=== PATIENT | male | born 1965 | race Caucasian/White ===

== ENCOUNTER → 2020-06-04 08:18 | Outpatient (CLI) | payer OTHER, SELFPAY ==
--- NOTE | ~2020-06-04 | XR_ITS ---
XR foot RT min 3V 06/04/2020 08:39 Indication: Right foot pain Procedure: 4 views right foot Comparison: No prior studies for comparison. Findings: No fracture, subluxation or dislocation. Normal mineralization. Lisfranc joint is intact. N o degenerative calcaneal enthesophyte. No soft tissue abnormality. No foreign bodies. Impression: 1: No acute fracture. Reviewed, dictated and finalized at location A. Impression: 1: No acute fracture.
== END ==
PROVIDERS: PCP Family Medicine; Visit Provider Family Medicine
DX: M79.671 Pain in right foot (principal)
CPT/HCPCS: 73630

== ENCOUNTER → 2020-06-18 09:25 | Outpatient (CLI) | payer OTHER, SELFPAY ==
--- NOTE | ~2020-06-18 | MR_ITS ---
EXAMINATION: MR foot RT wo con DATE: 06/18/2020 10:53 INDICATION: Right foot pain. TECHNIQUE: Magnetic resonance imaging (MRI) of the right foot was performed without intravenous contr ast. Sequences included axial, coronal, and sagittal PD-weighted FSE and PD-weighted FS FSE. COMPARISON: Right foot radiographs 06/04/2020 FINDINGS: There is a skin marker medial to calcaneus. Bone alignment is normal. No fracture. There is mild osteoarthritis of the ankle joint and many of the midfoot joints. There is moderate osteoarthri tis of second tarsometatarsal joint. Lisfranc ligament is normal. There is a 2.4 cm nonaggressive lyt ic lesion in body of calcaneus that contains fat, consistent with an intraosseous lipoma. There is mo derate peroneus brevis tendinopathy. The anterior and medial ankle tendons are normal. There is mild Achilles tendinopathy. There are varices in the talar tunnel. There is mild fatty atrophy of abductor digiti quinti muscle. There is thickening and increased signal involving medial and central bands of plantar fascia, consistent with fasciitis. There is an enthesophyte at the calcaneal attachment. The re is a small talonavicular joint effusion. IMPRESSION: 1. Plantar fasciitis. 2. Polyarticular osteoarthritis. Reviewed, dictated and finalized at location A.
== END ==
PROVIDERS: PCP Family Medicine; Visit Provider Family Medicine
DX: M19.071 Primary osteoarthritis, right ankle and foot (principal); M72.2 Plantar fascial fibromatosis
CPT/HCPCS: 73718

== ENCOUNTER → 2021-01-23 09:46 | Outpatient (CLI) | payer OTHER, SELFPAY ==
--- NOTE | ~2021-01-23 | MR_ITS ---
EXAMINATION: MR brain/brain stem wo/w con EXAM DATE: 01/23/2021 10:47 INDICATION: Other general symptoms and signs, Abnormal weight gain. Low testosterone. TECHNIQUE: Magnetic resonance imaging (MRI) of the brain/brain stem obtained without contrast. Sagit nazario T1, axial diffusion, gradient echo (T2*), T1, T2, FLAIR sequences obtained. Patient was then inj ected with 20 cc intravenous Multihance contrast. Axial and coronal postcontrast T1 weighted sequence s obtained. A pituitary protocol was utilized including dynamic imaging through the pituitary gland d uring intravenous injection of contrast. There are no prior studies for comparison. FINDINGS: The pituitary gland is confined to the sella turcica. Suprasellar region normal in appear ance. The optic chiasm normal. Infundibulum is midline. No definite pituitary microadenoma identif ied. Please note small microadenomas can cause endocrine abnormalities but are not always identified by imaging even using dedicated pituitary protocol. This does exclude macroadenoma or need for surg ical management. There are no areas of restricted diffusion to suggest acute infarction. There is no acute hemorrhage seen on the T2*, a hemosiderin sensitive sequence. No intraparenchymal brain mass. The ventricles a re normal in size. There are no extra-axial collections. Flow voids are seen in the cerebral arteri es on the T2-weighted sequences consistent with their expected patency. The orbits are unremarkable. Soft tissue is unremarkable. IMPRESSION: 1. Unremarkable brain/pituitary exam. Reviewed, dictated and finalized at location B. 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
[2021-01-23 10:13] LABS: Estimated Glomerular Filt Rate > 60
== END ==
PROVIDERS: PCP Family Medicine; Visit Provider Family Medicine
DX: R79.89 Other specified abnormal findings of blood chemistry (principal); R68.89 Other general symptoms and signs; R63.5 Abnormal weight gain
CPT/HCPCS: 70553; A9577

== ENCOUNTER → 2021-11-23 12:51 | Outpatient (CLI) | payer OTHER, SELFPAY ==
--- NOTE | ~2021-11-23 | CT_ITS ---
EXAMINATION: CTA chest PE protocol DATE: 11/23/2021 13:16 INDICATION: Shortness of breath. TECHNIQUE: Computed tomography angiography (CTA) of the chest was performed with 100 mL Omnipaque-350 intravenous contrast timed to evaluate the pulmonary arteries. Coronal maximum intensity projection 3D-reconstructions were created by the technologist. Automated exposure control and iterative reconst ruction technique were employed. The dose-length product was 734.31 mGy-cm. COMPARISON: None. FINDINGS: The lung volumes are small. The lungs demonstrate mild atelectasis. A calcified right lung nodule and calcified right hilar lymph nodes are consistent with old granulomatous disease. No pleura l effusion. The heart size is normal. No pericardial effusion. There is mild bilateral hilar lymphade nopathy. There is a 12 mm mass in left adrenal gland measuring soft tissue attenuation. There is mild thoracic spondylosis. There is mild chronic anterior wedging of T10 and T11 vertebral bodies. IMPRESSION: 1. No pulmonary embolus. 2. Small lung volumes with mild atelectasis bilaterally. 3. Mild bilateral hilar lymphadenopathy, likely reactive. 4. 12 mm left adrenal mass. In the absence of known malignancy, this finding is likely an adenoma. Reviewed, dictated and finalized at location A.
[2021-11-23 13:09] LABS: Estimated Glomerular Filt Rate > 60
== END ==
PROVIDERS: PCP Family Medicine; Visit Provider Family Medicine
DX: R06.02 Shortness of breath (principal); R00.0 Tachycardia, unspecified; R79.89 Other specified abnormal findings of blood chemistry; E27.9 Disorder of adrenal gland, unspecified
CPT/HCPCS: 71275; Q9967

== ENCOUNTER → 2021-12-26 12:05 | Outpatient (CLI) | payer OTHER, SELFPAY ==
--- NOTE | ~2021-12-26 | MR_ITS ---
EXAMINATION: MR abdomen wo/w con, MR pelvis wo/w con DATE: 12/26/2021 14:46 INDICATION: Apical and advancement may have . Abnormality left adrenal gland. TECHNIQUE: 1. Magnetic resonance imaging (MRI) of the abdomen was performed without and with 20 mL Multihance in travenous contrast. Sequences included coronal and axial T2-weighted SS-FSE, axial FS 2D-FIESTA, agustina nal and axial dual-echo T1-weighted FSPGR, axial T1-weighted LAVA, and axial STIR FSE. Postcontrast a xial T1-weighted LAVA images were obtained in a time course. Postcontrast coronal T1-weighted LAVA im ages were obtained. 2. MRI of the pelvis was performed without and with 20 mL MultiHance intravenous contrast utilizing t he same contrast bolus. Sequences included coronal T2-weighted SS-FSE, FS 2D-FIESTA and T1 weighted L SABRA, axial FS 2D-FIESTA, axial dual-echo T1-weighted FSPGR, axial T1-weighted LAVA, and axial STIR FS E. Postcontrast axial and coronal T1-weighted LAVA images were obtained. COMPARISON: CT chest dated 11/23/2021 FINDINGS: Abdomen: Heart size is normal. No pericardial or pleural effusion. Eventration along the right hemidiaphragm. Diffuse hepatic steatosis with signal dropout on opposed phase imaging and focal sparing along the ga llbladder fossa. No intra or extra hepatic biliary ductal dilation. Gallbladder, pancreas, spleen and right kidney are normal. 6 mm T2 hyperintense nonenhancing cyst at the interpolar region of the left kidney. Bilateral adrenal glands are normal with no discrete adrenal nodules. There is a left adrena l vein which runs along the anterior margin of the medial limb of the left adrenal gland which appear s to account for the nodular appearance on the prior CT. The left adrenal vein drains into a normal v ariant retroaortic left renal vein. No pathologically enlarged abdominal lymphadenopathy. Pelvis: Bowels are normal including a normal appendix. Bladder, prostate and bilateral testes are unremarkabl e. Small fat-containing left inguinal hernia. No pathologically enlarged pelvic lymphadenopathy. No a scites. Mild lumbar levocurvature with moderate to severe lower lumbar spondylosis. IMPRESSION: 1. No discrete adrenal nodules. Artifactual appearance of a small left adrenal nodule on the prior CT results from a left adrenal vein abutting the anterior margin of the medial limb of the left adrenal gland which is best distinguished on the postcontrast images. 2. Diffuse hepatic steatosis. Reviewed, dictated and finalized at location A. 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 No discrete adrenal nodules. Artifactual appearance of a small left adrenal nodule on the prior CT results from a left adrenal vein abutting the anterior m argin of the medial limb of the left adrenal gland which is best distinguished on the postcontrast images. 2. Diffuse hepatic steatosis.
== END ==
PROVIDERS: PCP Family Medicine; Visit Provider Family Medicine
DX: E29.1 Testicular hypofunction (principal); D35.02 Benign neoplasm of left adrenal gland; K76.0 Fatty (change of) liver, not elsewhere classified
CPT/HCPCS: 72197; 74183; A9577

== ENCOUNTER → 2023-01-18 10:18 | Outpatient (CLI) | payer OTHER, SELFPAY ==
--- NOTE | ~2023-01-18 | US_ITS ---
US abdomen limited INDICATION: Bloating. Generalized abdominal pain. PROCEDURE: Realtime right upper abdominal ultrasound. COMPARISON: No prior studies for comparison. FINDINGS: The pancreas is normal without focal mass or pancreatic ductal dilation. Echotexture is in creased, consistent with fatty infiltration. There is normal directional flow in the portal vein. The gallbladder is normal without stones, gallbladder wall thickening or pericholecystic fluid. Comm on bile duct measures 5 mm. No sonographic Nuñez's sign. IMPRESSION: 1: Fatty infiltration of the liver. Reviewed, dictated and finalized at location B. 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
== END ==
PROVIDERS: PCP Family Medicine; Visit Provider Family Medicine
DX: R73.9 Hyperglycemia, unspecified (principal); F41.9 Anxiety disorder, unspecified; R19.7 Diarrhea, unspecified; R14.0 Abdominal distension (gaseous); K76.0 Fatty (change of) liver, not elsewhere classified
CPT/HCPCS: 76705

== ENCOUNTER 2023-04-04 07:49 | Outpatient (CLI) | payer OTHER, SELFPAY ==
--- NOTE | 2023-04-04 08:08 | ECG_ITS ---
Measurements Intervals [place] Rate: 83 P: 5 OK: 168 QRS: 5 QRSD: 98 T: 42 QT: 361 QTc: 426 Interpretive Statements SINUS RHYTHM BASELINE ARTIFACT NORMAL ECG NO PREVIOUS ECG AVAILABLE FOR COMPARISON Electronically Signed On 04-04-2023 12:28:27 REDUCER by Kelton Gaspar M.D.
[2023-04-04 09:15] LABS: Anion Gap 11 mmol/L (8-16); Blood Urea Nitrogen 25 mg/dL (9-20); Calcium 9.8 mg/dL (8.4-10.2); Carbon Dioxide 23 mmol/L (22-30); Chloride 105 mmol/L (98-107); Estimated Glomerular Filt Rate > 60; Glucose 123 mg/dL (65-110); Potassium 4.6 mmol/L (3.4-5.0); Sodium 139 mmol/L (137-145)
[2023-04-04 09:16] LABS: Alanine Aminotransferase 36 U/L (6-50); Albumin Level 4.5 g/dL (3.5-5.1); Alkaline Phosphatase 59 U/L (38-126); Amylase 90 U/L (30-110); Aspartate Amino Transferase 34 U/L (17-59); Bilirubin,Total 0.6 mg/dL (0.2-1.3); Lipase 85 U/L (23-300)
== END 2023-04-04 07:50 | disposition home or self-care (01) ==
LOC: ANHSURGERY 07:52
PROVIDERS: Anesthesiology; PCP Family Medicine; Visit Provider Surgery
DX: Z01.818 Encounter for other preprocedural examination (principal); K81.1 Chronic cholecystitis; I10 Essential (primary) hypertension; E11.9 Type 2 diabetes mellitus without complications
CPT/HCPCS: 36415; 80048; 80076; 82150; 83690; 93005

== ENCOUNTER 2023-04-11 00:42 | Day surgery (SDC) | payer OTHER, SELFPAY ==
[2023-04-01 14:00] VITALS: BMI 339.7
--- NOTE | 2023-04-01 14:11 | PC.NURSE ---
Report to the Outpatient Waiting Room, entrance under the green pavilion located off [facility], at time _0600_ on date _[id number]_. Planned Procedure Time: _0730_. Time changes happen often and if your time is changed the preop area will call you the afternoon before. - You and your visitor will be asked to self-screen and do not enter if you have any COVID symptoms. - A mask is optional within the hospital at this time. Patients may have clear liquids (water, carbonated beverages, clear teas, apple juice) until 3 hours prior to surgery with a maximum of 20 ounces. - No food from midnight until time of surgery Take the following medications with a SIP of water the morning of surgery: ___Metoprolol DO NOT STOP ANY OF YOUR OTHER PRESCRIPTION MEDICATIONS PRIOR TO SURGERY ?EXCEPT THE FOLLOWING Medications to discontinue per physician Clopidogrel Date to take last [id number] Says is to take 81mg Aspirin instead until surgery. Please no make-up, nail maldivian, hairspray, perfume, deodorant, or body powder the day of surgery. No jewelry (including any body piercings) or valuables the day of surgery, leave them at home. Please take a shower or bath the night before, or the morning of, surgery with an antibacterial soap. Wear comfortable, loose fitting clothing. - Jewelry must be removed prior to entering the operating room. Rings and piercings that are not removed may be cut off. - The hospital will not accept responsibility for valuables. - Please leave all valuables, including medications, at home the day of surgery. If you are going home after surgery, a licensed special needs bus driver must drive you home. - NO public transportation without another adult if you receive anesthesia. - We recommend that an adult stay with you for 24 hours following discharge. - We also recommend that you do not drive, make important decision, drink alcoholic beverages, or take any drugs that were not prescribed by your health care provider for at least 24 hours after your discharge time. Follow any additional instructions given to you from your surgeon. If you or anyone in your household have experienced Covid symptoms in the past week, please notify your surgeon or the nurse liaison at the phone number below for possible testing. Telephone instructions given to __Gary___and asked if any additional questions and then verbalized understanding. Patient advised to call surgeon office or pre surgery nurse liaison [phone] if any additional questions.
[2023-04-11] VITALS (10 sets, daily range): BP systolic 121–173; BP diastolic 80–105; PULSE 69–93; RESP 12–24; TEMP 36.7–36.9; O2SAT 90–100; BMI 34.7
--- NOTE | 2023-04-11 06:28 | WPDANESEPPF ---
Anes - Initial Pre Proc Eval Procedure: Operation Date: 04/11/23 07:30 Proposed Procedures p Laparoscopic Cholecystectomy - Renetta Granados MD Date/Time: 04/11/23 06:28 Surgeon: Renetta Granados MD Pre Op Diagnosis: chronic cholecystitis Patient Data Age: 57 Gender: M Height: 1.8 m Weight: 114.5 kg Allergies Allergy/AdvReac Type Severity Reaction Status Date / Time metformin AdvReac Mild Other Verified 04/01/23 13:58 statin AdvReac Mild Other Uncoded 04/01/23 13:58 Home Medications Medication Instructions Recorded Confirmed Type clopidogrel 75 mg tablet 75 mg PO DAILY 01/08/23 04/01/23 History ipratropium bromide 42 mcg (0.06 2 spray intranasal TID 01/08/23 04/01/23 History %) nasal spray metoprolol succinate 25 mg 25 mg PO Q12H 01/08/23 04/01/23 History tablet,extended release 24 hr evolocumab 140 mg/mL subcutaneous 140 mg subcut ONCE 03/20/23 04/01/23 History pen injector (Reji Costello) lisinopril 5 mg tablet 5 mg PO DAILY 03/20/23 04/01/23 History Patient hx anesthesia problems: none Family hx anesthesia problems: none Results Review: All pre-operative results and documents have been reviewed as part of the pre-operative evaluation. [facility] Past Medical History Medical History (Updated 04/11/23 @ 06:29 by Dario Beth MD) Fatigue HTN (hypertension) Hyperlipidemia Left adrenal mass Low testosterone Obesity Pre-diabetes Surgical History Surgical History H/O rotator cuff surgery History of cardiac cath x2 History of excision of pilonidal cyst Hx of tonsillectomy Family History Family History Other Diabetes mellitus Family history of heart disease in male family member before age 55 Heart disease Hypertension Social History Social History Smoking packs per day: 1.5 Smoking cigarettes per day: 30.0 Years smoked: 28 Smoking pack-years: 42.00 Smoking status: Former smoker Tobacco type: cigarettes Smokeless tobacco user: chewing tobacco Smoking end date: 04/01/09 Alcohol intake: current Substance use: never Do You Feel Safe in your Home?: Yes Lack of Transportation: No Lack of Food: Never True Current Housing: I Have Housing Concerned About Future Housing: No Difficulty Paying Gas/Electric Bills: No Difficulty Paying for Meds: No Currently Unemployed: No Education: High School Diploma/GED Difficulty w/ Childcare or Family Care: No Living arrangements: with family Occupation/Education: retired Spiritual care concerns: No Anes - Eval Final PreProcedure Day of Procedure 04/11/23 06:28 Patient weight: obese Heart: regular rate and rhythm Lungs: clear to auscultation Airway: Mallampati scale class II Neurological: alert and oriented Last oral intake: >/= 8 hours ASA classification: III Emergent: no Anesthetic plan: proceed Anesthesia type and monitoring: general ETT and standard monitoring Results Review: All pre-operative results and documents have been reviewed as part of the pre-operative evaluation. Informed Consent: The patient's anesthetic plan and its attendant risks and benefits were discussed with the patient/family/POA. Questions were solicited and answers provided to the satisfaction of the patient/family/POA.
[2023-04-11] MEDS: LACTATED RINGERS 1,000 ML 30 ML IV CONT ×2 (06:50→08:24)
[2023-04-11] MEDS: KETOROLAC 15 MG/ML VIAL (*BKC) IV PUSH (06:56)
[2023-04-11] MEDS: ACETAMINOPHEN 500 MG TABLET 1000 MG PO (06:57)
--- NOTE | 2023-04-11 07:19 | WPDHPUPDATE1 ---
History and Physical Update Update Date/Time: 04/11/23 07:19 History and Physical has been reviewed, including an updated exam of the patient. There are NO changes in the patient's condition. Risks, benefits, and alternatives have been discussed and questions answered. Patient agrees to proceed with procedure.
[2023-04-11] MEDS: ceFAZolin 2 GM/D5W 50 ML 2 GM/50 ML BAG IVPB (07:24)
[2023-04-11] MEDS: BUPIVACAINE/EPINEPHRINE 0.5% 50 ML VIAL 30 ML INFILTRATE (07:52)
--- NOTE | 2023-04-11 08:17 | W.PM.PROC2 ---
Procedure Note - Detailed Date of Procedure 04/11/23 Pre-op Diagnosis chronic cholecystitis Post-op Diagnosis Same Procedure Performed Laparoscopic cholecystectomy Surgeon Renetta Granados MD Anesthesia General Indications 57-year-old male presented to the office complaining of postprandial right upper quadrant abdominal pain associated with bloating, nausea. Workup including imaging significant for chronic cholecystitis. Findings Cholecystitis with cholelithiasis Description of Procedure The patient was taken to the operating room placed in the supine position. After adequate induction of general anesthesia, the patient was prepped and draped in normal sterile fashion. A time-out was then performed to verify the patient's identity as well as the procedure being performed. I then made a 5 mm incision in the infraumbilical region. Through this, a Veress needle was placed into the peritoneal cavity and CO2 gas was then insufflated. After adequate pneumoperitoneum was achieved, the Veress needle was removed and a 5 mm optiview trocar was placed through this incision under direct visualization. I then placed the laparoscope through this trocar site and under direct visualization placed a further 12 mm subxiphoid port as well as 2 additional 5 mm ports in the right upper abdomen. The gallbladder was then identified and was noted to be inflamed and distended. There was a large amount of omental adhesions and these were taken down both bluntly and with the Bovie cautery. Once freed, I was able to place a grasper at the dome of the gallbladder and this was retracted anterior and cephalad up over the liver. A 2nd retractor was then placed at the infundibulum and retracted laterally, this allowed visualization of the triangle of Calot. I then was able to visualize the cystic duct in its entirety from its proximal insertion into the gallbladder, to its distal junction with the common hepatic/common bile duct junction. At this point, I carefully skeletonized the proximal cystic duct with the [place] dissector. I then clipped and transected the proximal cystic duct. Next I visualized the cystic artery. Again the artery was skeletonized, clipped, and transected. I then used the Bovie cautery to take down the peritoneal attachments of the gallbladder off the liver bed. This was somewhat difficult given the amount of inflammation in the posterior space. Once the gallbladder specimen was completely detached, an endo-pouch was placed through the 12 mm port site. I then placed the gallbladder specimen into the Endo pouch and removed the endo-pouch from the 12 mm port site. The specimen will now be sent to pathology for further review. I then copiously irrigated the right upper quadrant. Hemostasis was noted in the liver bed, the clips were noted to be in good position on both the cystic duct stump and the cystic artery stump. No other pathology was noted in the right upper quadrant. I then moved the laparoscope to the subxiphoid port. No iatrogenic injury or other pathology was noted in the lower abdomen. I then closed the 12 mm trocar site under direct visualization using the Valeriy cone and 0 Vicryl suture. At this point, the abdomen was desufflated and all ports removed. All port sites were then closed with 4.O Monocryl subcuticular sutures. Dermabond was placed on each incision. The patient tolerated the procedure well, was extubated in the operating room postoperative and will be transferred to the recovery room in stable condition Estimated Blood Loss 10 Drains No Packing No Pathology Yes Complications No immediate complications Condition Stable Disposition PACU [facility] Billing Surgery - Charge Forward: Surgery Billing
[2023-04-11] MEDS: PROPOFOL IV EMULSION 200 MG/20 ML VIAL 50 MG IV PUSH (08:33)
--- NOTE | 2023-04-11 08:46 | SUR.PHASEI ---
Patient woke-up aggressively. 50mg of propofol given IV push per MARQUEZ Keating. Multiple staff members at the bedside to keep patient from getting out of stretcher and safe.
[2023-04-11] MEDS: ONDANSETRON INJ 4 MG/2 ML VIAL IV PUSH (10:27)
== END 2023-04-11 11:01 | disposition home or self-care (01) ==
PROVIDERS: PCP Family Medicine; Visit Provider Surgery
PROC: 0FT44ZZ Resection of Gallbladder, Percutaneous Endoscopic Approach (ICD-10-PCS; CPT 47562; principal; 2023-04-11 07:30)
DX: K81.1 Chronic cholecystitis (principal); I10 Essential (primary) hypertension; E78.5 Hyperlipidemia, unspecified; R73.03 Prediabetes; F17.220 Nicotine dependence, chewing tobacco, uncomplicated; E66.9 Obesity, unspecified; Z68.34 Body mass index [BMI] 34.0-34.9, adult; Z79.02 Long term (current) use of antithrombotics/antiplatelets; Z79.85 Long-term (current) use of injectable non-insulin antidiabetic drugs; Z98.890 Other specified postprocedural states; Z98.61 Coronary angioplasty status; Z86.018 Personal history of other benign neoplasm; Z82.49 Family history of ischemic heart disease and other diseases of the circulatory system
CPT/HCPCS: 47562; 36415; 80048; 80076; 82150; 83690; 88304; 93005; A9270; J0690; J1100; J1885; J2250; J2405; J2704; J3010; J7030; J7120

== ENCOUNTER 2023-11-12 07:10 | Outpatient (CLI) | payer OTHER, SELFPAY ==
[2023-11-12 08:37] LABS: Free T4 Free Thyroxine 1.05 ng/mL (0.78-2.19)
[2023-11-14 05:14] LABS: Sex Hormone Binding Globulin 14 nmol/L (22-77)
[2023-11-16 19:19] LABS: Testosterone Total 183 ng/dL (250-1100)
[2023-11-17 04:33] LABS: Testosterone Free 38.4 pg/mL (46.0-224.0)
== END 2023-11-12 07:11 | disposition home or self-care (01) ==
PROVIDERS: PCP Family Medicine; Visit Provider Internal Medicine
DX: R53.83 Other fatigue (principal); R79.89 Other specified abnormal findings of blood chemistry; E27.8 Other specified disorders of adrenal gland; R73.03 Prediabetes
CPT/HCPCS: 36415; 84270; 84402; 84403; 84439; 84443

== ENCOUNTER 2023-12-25 13:53 | Outpatient (CLI) | payer OTHER, SELFPAY ==
[2023-12-25 14:22] LABS: Hematocrit 45.5 % (42.0-52.0); Hemoglobin 15.7 g/dL (14.0-18.0); Mean Corpuscular HGB Conc 34.5 g/dl (32-36); Mean Corpuscular Hemoglobin 30.5 pg (26-34); Mean Corpuscular Volume 88.5 fl (80-100); Mean Platelet Volume 8.9 fl (7.4-10.4); Platelet Count Result 240 k/mm3 (150-375); Red Blood Count 5.14 M/mm3 (4.6-6.20); Red Cell Distribution Width 12.6 % (11.5-14.5); White Blood Count 6.9 K/mm3 (4.5-10.0)
[2023-12-25 18:29] LABS: Alanine Aminotransferase 38 U/L (6-50); Albumin Level 4.6 g/dL (3.5-5.1); Alkaline Phosphatase 72 U/L (38-126); Anion Gap 10 mmol/L (4-12); Aspartate Amino Transferase 34 U/L (17-59); Bilirubin,Total 0.5 mg/dL (0.2-1.3); Blood Urea Nitrogen 21 mg/dL (9-20); Calcium 10.1 mg/dL (8.4-10.2); Carbon Dioxide 25 mmol/L (22-30); Chloride 101 mmol/L (98-107); Estimated Glomerular Filt Rate > 60; Glucose 111 mg/dL (65-110); Potassium 4.1 mmol/L (3.4-5.0); Sodium 136 mmol/L (137-145)
[2023-12-25 18:59] LABS: Prostate Specific Antigen 1.6 ng/mL (< OR = 4.0)
[2023-12-28 18:18] LABS: Testosterone Total 204 ng/dL (250-1100)
[2023-12-29 03:13] LABS: Testosterone Free 46.8 pg/mL (46.0-224.0)
== END 2023-12-25 13:54 | disposition home or self-care (01) ==
LOC: ANHLAB 13:54
PROVIDERS: PCP Family Medicine; Visit Provider Internal Medicine
DX: I25.10 Atherosclerotic heart disease of native coronary artery without angina pectoris (principal); R73.03 Prediabetes; R79.89 Other specified abnormal findings of blood chemistry; Z12.5 Encounter for screening for malignant neoplasm of prostate
CPT/HCPCS: 36415; 80053; 84153; 84402; 84403; 85027; G0103

== ENCOUNTER 2024-04-27 08:30 | Outpatient (CLI) | payer OTHER, SELFPAY ==
--- OUTSIDE RECORDS SUMMARY | 2024-04-27 08:54 | XMS_ITS | Referral Summary ---
Author Organization [facility] [address] Address [address] [place] [address] Care Team Providers Care Perlite Grinder Name Role Phone Sayda Vaughn MD Primary Care Provider Allergies No known active allergies Medications clopidogreL (PLAVIX) 75 mg tablet Take 1 tablet (75 mg total) by mouth daily 90 tablet 10/11/2020 Active evolocumab (Repatha SureClick) 140 mg/mL pen injector Inject 1 mL (140 mg total) under the skin every 14 (fourteen) days 6 mL 1 12/05/2020 Active Active Problems No known active problems Social History Tobacco Use Types Packs/Day Years Used Date Smoking Tobacco: Former Cigarettes Q uit: 2009 Smokeless Tobacco: Former Alcohol Use Standard Drinks/Week Comments Not Currently 0 (1 standard drink = 0.6 oz pur e alcohol) Personal Safety Answer Date Recorded Getting School Help Needed Not on file 04/26 Sex and Gender Information Value Date Recorded Sex Assigned at Not on file Legal Sex 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 Gender Identity Not on file Sexual Orientation Not on file Last Filed Vital Signs Vital Sign Reading Time Taken Comments Blood Pressure 124/80 01/06/2020 9:47 AM SPECIAL EDUCATION BUS DRIVER Pulse 76 01/06/2020 9:47 AM SPECIAL EDUCATION BUS DRIVER Temperature 36.2 C (97.1 F) 08/04/2019 2:50 PM CDT Respiratory Rate - - Oxygen Saturation 95% 01/06/2020 9:47 AM SPECIAL EDUCATION BUS DRIVER Inhaled Oxygen Concentration - - Weight 113.9 kg (251 lb) 01/06/2020 9:47 AM SPECIAL EDUCATION BUS DRIVER Height 180.3 cm (5' 11 ) 01/06/2020 9:47 AM SPECIAL EDUCATION BUS DRIVER Body Mass Index 35.01 01/06/2020 9:47 AM SPECIAL EDUCATION BUS DRIVER Plan of Treatment Not on file Insurance [employer] Member Subscriber Plan / Payer (Ef fective 2019-Present) Name:Patric Mendez Relation to Subscriber:Self Name:Patric Mendez Payer ID:[id number] ([facility]) Group ID:[id number] Type:[employer]IG[employer] HMO/PPO Address: [facility] [id number] [place] [address] [address] [phone] Care Teams Perlite Grinder Relationship Specialty Start Date End Date Sadya Vaughn MD [address] [place] [address] PCP - General Family Medicine 05/22/19
--- OUTSIDE RECORDS SUMMARY | 2024-04-27 08:54 | XMS_ITS | Clinical Summary ---
Author Organization [facility] [address] Address [address] [place] [address] Care Team Providers Care Bottom Loader Name Role Phone Sayda Vaughn MD Primary [...] Active Active Problems No known active problems Surgical History Surgery Date Site/Laterality Comments CARDIAC CATHETERIZATION SHOULDER ARTHROSCOPY W/ ROTATOR CUFF REPAIR LYMPH NODE BIOPSY TONSILLECTOMY Medical History Medical History Date Comments Hypertension Acid indigestion Diverticulitis COPD (chronic obstructive pulmonary disease) (HC C) Family History Medical History Relation Name Comments Diabetes Father Hypertension Father Bladder Cancer Maternal Grandfather Stomach cancer Maternal Grandfather Diabetes Sister Relation Name Status Comments Brother Alive Father Maternal Grandfather Mother Alive Sister Alive Social History Tobacco Use Types Packs/Day Years Used Date Smoking Tobacco: Former Cigarettes Q uit: 2010 Smokeless Tobacco: Former Alcohol Use Standard Drinks/Week Comments Not Currently 0 (1 standard drink = 0.6 oz pur e alcohol) Personal Safety Answer Date Recorded Getting School Help Needed Not on file 04/26 Sex and Gender Information Value Date Recorded Sex Assigned at Not on file Legal 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 Gender Identity Not on file Sexual Orientation Not on file Obstetrics History Last Filed Vital Signs Vital Sign Reading Time Taken Comments Blood Pressure 124/80 01/06/2020 9:47 AM BRIEF WRITER Pulse 76 01/06/2020 9:47 AM BRIEF WRITER Temperature 36.2 C (97.1 F) 08/04/2019 2:50 PM CDT Respiratory Rate - - Oxygen Saturation 95% 01/06/2020 9:47 AM BRIEF WRITER Inhaled Oxygen Concentration - - Weight 113.9 kg (251 lb) 01/06/2020 9:47 AM BRIEF WRITER Height 180.3 cm (5' 11 ) 01/06/2020 9:47 AM BRIEF WRITER Body Mass Index 35.01 01/06/2020 9:47 AM BRIEF WRITER Plan of Treatment Not on file Insurance [facility] Member Subscriber Plan / Payer (Ef fective 2019-Present) Name:Patric Mendez Relation to Subscriber:Self Name:Patric Mendez Payer ID:[id number] ([employer]) Group ID:[id number] Type:[employer] HMO/PPO Address: [facility] [id number] [place] [phone] Care Teams Bottom Loader Relationship Specialty Start Date End Date Sayda Vaughn MD [address] [place] [address] PCP - General Family Medicine 05/22/19
--- OUTSIDE RECORDS SUMMARY | 2024-04-27 08:54 | XMS_ITS | Continuity of Care Document ---
Author Organization [facility] Address [address] [place] [address] [address] [place] [address] Phone Care Team Providers Care Forensic Anthropologist Name Role Phone Gamez OD, Wiley Unavailable Unavailable Procedures Procedure Date Eye Exam & Treatment Refraction Advance Directives Directive Yes / No Effective Date File Name No Information Encounters Encounter Description Practice Location Reason(s) For Visit Diagnoses Date Provider Providers Copied on Encounter [facility], [address] [place] [address] [address], [place], [place], [id number], [place] tel:[phone] SEC [facility] No Information 2-[address] 8 Gamez OD Wiley. [address] [facility] , [address], [place], [address], [place]. tel:[phone] Family History Family Member Type Diagnosis Age At Onset No Information Payers Payer name Insurance type Covered constitution party ID Authoriza tion(s) No Information Social History [...]
[2024-04-27 09:21] LABS: Hematocrit 48.4 % (42.0-52.0); Hemoglobin 16.1 g/dL (14.0-18.0); Mean Corpuscular HGB Conc 33.3 g/dl (32-36); Mean Corpuscular Hemoglobin 29.6 pg (26-34); Mean Platelet Volume 8.8 fl (7.4-10.4); Platelet Count Result 235 k/mm3 (150-375); Red Blood Count 5.44 M/mm3 (4.6-6.20); Red Cell Distribution Width 12.6 % (11.5-14.5); White Blood Count 5.2 K/mm3 (4.5-10.0)
[2024-04-27 10:30] LABS: Prostate Specific Antigen 1.3 ng/mL (< OR = 4.0)
[2024-04-27 10:43] LABS: Hemoglobin A1C 6.2 % (<5.7)
[2024-04-27 11:01] LABS: Free T4 Free Thyroxine 1.12 ng/dL (0.78-2.19)
== END 2024-04-27 08:31 | disposition home or self-care (01) ==
PROVIDERS: PCP Family Medicine; Visit Provider Internal Medicine
DX: R73.03 Prediabetes (principal); E27.8 Other specified disorders of adrenal gland; R79.89 Other specified abnormal findings of blood chemistry; I25.10 Atherosclerotic heart disease of native coronary artery without angina pectoris; R53.83 Other fatigue; Z12.5 Encounter for screening for malignant neoplasm of prostate
CPT/HCPCS: 36415; 83036; 84153; 84402; 84403; 84439; 84443; 85027; G0103

== ENCOUNTER 2024-06-10 13:32 | Outpatient (CLI) | payer OTHER, SELFPAY ==
--- NOTE | ~2024-06-10 | CT_ITS ---
Clinical Indication: Chest pain, flank pain CT Scan of the Chest, Abdomen, and Pelvis with Contrast: Technique: Contiguous sections were acquired throughout the chest, abdomen, and pelvis after intraven ous administration of 100 cc of Omnipaque 350. Dose reduction technique was used on this scan by vianney hatfield automated exposure control and iterative reconstruction technique. The dose-length product (DL P) was 1497.17 mGy-cm. Comparison: 11/23/2021 Findings: There is no evidence of any significant mediastinal, hilar or axillary lymphadenopathy. Calcified rig ht hilar lymph node present. No aortic aneurysm or dissection seen. There is no evidence of pleural or pericardial effusion. The lungs are clear, aside from calcified right upper lobe granuloma. There is diffuse hepatic steatosis. Cholecystectomy clips are present. The spleen, pancreas, adrenals and kidneys are within normal limits. No evidence of aortic aneurysm. No lymphadenopathy. No bowel obstruction or bowel wall thickening. There is minimal haziness in the central mesentery wit h multiple shotty lymph nodes. Urinary bladder is unremarkable. No pelvic mass seen. No ascites. 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 Diffuse hepatic steatosis. Reviewed, dictated and finalized at location . 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 Diffuse hepatic steatosis.
[2024-06-10 13:51] LABS: Estimated Glomerular Filt Rate > 60
== END 2024-06-10 13:33 | disposition home or self-care (01) ==
LOC: MICIMG 13:32
PROVIDERS: PCP Family Medicine; Visit Provider Nurse Practitioner Family
DX: K76.0 Fatty (change of) liver, not elsewhere classified (principal); R07.89 Other chest pain
CPT/HCPCS: 71260; 74177; Q9967

== ENCOUNTER 2024-07-31 07:37 | Outpatient (CLI) | payer OTHER, SELFPAY ==
[2024-07-31 08:23] LABS: Hematocrit 49.3 % (42.0-52.0); Mean Corpuscular HGB Conc 32.5 g/dl (32-36); Mean Corpuscular Hemoglobin 29.4 pg (26-34); Mean Corpuscular Volume 90.6 fl (80-100); Mean Platelet Volume 8.8 fl (7.4-10.4); Platelet Count Result 235 k/mm3 (150-375); Red Blood Count 5.44 M/mm3 (4.6-6.20); Red Cell Distribution Width 12.9 % (11.5-14.5); White Blood Count 6.2 K/mm3 (4.5-10.0)
[2024-07-31 08:36] LABS: Alanine Aminotransferase 42 U/L (6-50); Albumin Level 4.7 g/dL (3.5-5.1); Alkaline Phosphatase 65 U/L (38-126); Anion Gap 11 mmol/L (4-12); Aspartate Amino Transferase 36 U/L (17-59); Bilirubin,Total 0.7 mg/dL (0.2-1.3); Blood Urea Nitrogen 24 mg/dL (9-20); Calcium 9.7 mg/dL (8.4-10.2); Carbon Dioxide 24 mmol/L (22-30); Chloride 103 mmol/L (98-107); Estimated Glomerular Filt Rate > 60; Glucose 116 mg/dL (65-110); Potassium 4.8 mmol/L (3.4-5.0); Sodium 138 mmol/L (137-145); Total Protein 8.6 g/dL (6.3-8.2)
[2024-07-31 08:49] LABS: Hemoglobin A1C 6.1 % (<5.7)
[2024-07-31 08:59] LABS: Free T4 Free Thyroxine 1.18 ng/dL (0.78-2.19)
[2024-07-31 09:04] LABS: Cortisol Random 1.02 ug/dL
== END 2024-07-31 07:38 | disposition home or self-care (01) ==
LOC: ANHLAB 07:39
PROVIDERS: PCP Family Medicine; Visit Provider Internal Medicine
DX: E27.8 Other specified disorders of adrenal gland (principal); Z71.3 Dietary counseling and surveillance; I10 Essential (primary) hypertension; R73.03 Prediabetes; E66.9 Obesity, unspecified
CPT/HCPCS: 36415; 80053; 82533; 83036; 84402; 84403; 84439; 84443; 85027

== ENCOUNTER 2024-09-08 02:03 | Day surgery (SDC) | payer OTHER, SELFPAY ==
[2024-09-02 10:10] VITALS: BMI 34.9
--- NOTE | 2024-09-02 11:09 | PC.NURSE ---
Spoke with patient regarding medication Plavix. Patient verbalizes understanding that the last dose plavix is to be taken on 09/03/24 and to start taking Aspirin 81mg daily until resuming Plavix and the Endoscopist will instruct them when to restart after the procedure.
--- OUTSIDE RECORDS SUMMARY | 2024-09-08 02:07 | XMS_ITS | Encounter Summary ---
Author Organization [facility] Address Critical access hospital[address] [place] [address] Care Team Providers Care Pattern Changer Name Role Phone Dennys Benito MD, Jina Unavailable [phone] Olya Chou [facility] Unavailable [phone] Sayda Vaughn MD Primary Care Provider Jessee Garland MD Unavailable [phone] Encounter Details Date Type Department Care Team (Late st Contact Info) Description 05/04/2021 Abstract [facility] [address] [place] [phone] Jian Noyola MD [address] [address] Social History Tobacco Use Types Packs/Day Years Used Date Smoking Tobacco: Former Cigarettes Q uit: 10/03/2009 Smokeless Tobacco: Former Chew Quit: 12/30/1995 Alcohol Use Standard Drinks/Week Comments Yes 0 (1 standard drink = 0.6 oz pur e alcohol) occasional Sex and Gender Information Value Date Recorded Sex Assigned at Not on file Legal Sex Male 11:02 PM CDT Gender Identity Not on file Sexual Orientation Not on file Occupation Industry Job Start Date Job End Date 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 Not on file Not on file Not on f ile documented as of this encounter Plan of Treatment Upcoming Encounters Date Type Department Care Team (Late st Contact Info) Description 01/18/2025 9:30 AM ROUTE SERVICE REPRESENTATIVE Office Visit [facility]-[address] [place] [address] Olya Chou, [facility]- [address] [facility] [address] [place] [address] documented as of this encounter Procedures Procedure Name Priority Date/Time Associated Diagnosis Comments LIPID PANEL (OUTSIDE LAB) Routine 05/01/2021 HEMOGLOBIN A1C VISTA REVISED Routine 05/01/2021 CMP (OUTSIDE LAB) Routine 05/01/2021 CBC (OUTSIDE LAB) Routine 05/01/2021 documented in this encounter Results * (ABNORMAL) Hemoglobin A1C Treichlers Revised (05/01/2021) Pathologist [facility] HGB A1C 6.1(A) <=5.6 % 05/01/2021 us Sayda Vaughn MD GENERAL SUPPLY & EQUIP MENT ORDERABLES Final Result * CBC (OUTSIDE LAB) (05/01/2021) Pathologist [facility] WBC 5.3 HGB 15.4 HCT 44.8 PLT 234 RBC 5.01 05/01/2021 us Sayda Vaughn MD LAB-OUTSIDE/ABSTRACTED Final Result * (ABNORMAL) CMP (OUTSIDE LAB) (05/01/2021) SODIUM S/P/B 139 POTASSIUM S/P/B 4.8 CHLORIDE S/P/B 103 CO2 21 BUN 19 CREATININE S/P/B 1.03 0.7 - 1.3 EGFR NON-AFR. AMER. 85 <=90 CALCIUM S/P/B 9.6 GLUCOSE 109(A) <=99 mg/dL TOTAL PROTEIN S/P/B 7.3 ALBUMIN S/P/B 4.3 3.5 - 5.0 AST 26 ALT 33 ALKALINE PHOSPHATASE S/P/B 86 BILIRUBIN TOTAL S/P/B 0.5 05/01/2021 Sayda Vaughn MD LAB-OUTSIDE/ABSTRACTED Final Result * LIPID PANEL (OUTSIDE LAB) (05/01/2021) CHOLESTEROL 190 TRIGLYCERIDES 211 HDL 38 LDL (CALCULATED) 115 05/01/2021 Sayda Vaughn MD LAB-OUTSIDE/ABSTRACTED Final Result documented in this encounter Visit Diagnoses Not on filedocumented in this encounter Care Teams Pattern Changer Relationship Specialty Start Date End Date Sayda Vaughn MD [address] [place] [address] PCP - General FAMILY PRACTICE 12/30/15 Jian Noyola MD CARDIOVASCULAR DISEASE 12/07/15 Olya Chou, ANP- [address] [facility] [address] [place] [address] NURSE PRACTITIONER 12/07/15 Jessee Garland MD [address] [facility] [address] [place] [address] Referring Physician GASTROENTEROLOGY 12/08/18 documented as of this encounter
--- OUTSIDE RECORDS SUMMARY | 2024-09-08 02:07 | XMS_ITS | Clinical Summary ---
Author Organization [facility] [place] [address] Address [address] [place] [address] Care Team Providers Care Photogrammetric Stereo Compiler Name Role Phone Sayda Vaughn MD Primary [...] on file Legal Sex Male 10:02 AM HIDE CLEANER Gender Identity Not on file Sexual Orientation Not on file Obstetrics History Last Filed Vital Signs Vital Sign Reading Time Taken Comments Blood Pressure 124/80 01/06/2020 9:47 AM HIDE CLEANER Pulse 76 01/06/2020 9:47 AM HIDE CLEANER Temperature 36.2 C (97.1 F) 08/04/2019 2:50 PM CDT Respiratory Rate - - Oxygen Saturation 95% 01/06/2020 9:47 AM HIDE CLEANER Inhaled Oxygen Concentration - - Weight 113.9 kg (251 lb) 01/06/2020 9:47 AM HIDE CLEANER Height 180.3 cm (5' 11) 01/06/2020 9:47 AM HIDE CLEANER Body Mass Index 35.01 01/06/2020 9:47 AM HIDE CLEANER Plan of Treatment Not on file Insurance [facility] Member Subscriber Plan / Payer (Ef fective 2019-Present) Name:Patric Mendez Relation to Subscriber:Self Name:Patric Mendez Payer ID:[id number] (NAIC) Group ID:[id number] Type:[facility] HMO/PPO Address: [facility] [id number] [place] [id number] Care Teams Photogrammetric Stereo Compiler Relationship Specialty Start Date End Date Sayda Vaughn MD [address] [place] [address] PCP - General Family Medicine 05/22/19
--- OUTSIDE RECORDS SUMMARY | 2024-09-08 02:07 | XMS_ITS | Referral Summary ---
Author Organization [facility] [place] [address] Address [address] [place] [address] Care Team Providers Care Filling Mixer Name Role Phone Sayda Vaughn MD Primary [...] on file Legal Sex Male 10:02 AM SUPERVISOR COMPOUNDING AND FINISHING Gender Identity Not on file Sexual Orientation Not on file Last Filed Vital Signs Vital Sign Reading Time Taken Comments Blood Pressure 124/80 01/06/2020 9:47 AM SUPERVISOR COMPOUNDING AND FINISHING Pulse 76 01/06/2020 9:47 AM SUPERVISOR COMPOUNDING AND FINISHING Temperature 36.2 C (97.1 F) 08/04/2019 2:50 PM CDT Respiratory Rate - - Oxygen Saturation 95% 01/06/2020 9:47 AM SUPERVISOR COMPOUNDING AND FINISHING Inhaled Oxygen Concentration - - Weight 113.9 kg (251 lb) 01/06/2020 9:47 AM SUPERVISOR COMPOUNDING AND FINISHING Height 180.3 cm (5' 11) 01/06/2020 9:47 AM SUPERVISOR COMPOUNDING AND FINISHING Body Mass Index 35.01 01/06/2020 9:47 AM SUPERVISOR COMPOUNDING AND FINISHING Plan of Treatment Not on file Insurance [employer] Member Subscriber Plan / Payer (Ef fective 2019-Present) Name:Patric Mendez Relation to Subscriber:Self Name:Patric Mendez Payer ID:[id number] ([facility]) Group ID:[id number] Type:[employer]IG[employer] HMO/PPO Address: [facility] [id number] [place] [id number] [id number] Care Teams Filling Mixer Relationship Specialty Start Date End Date Sayda Vaughn MD [address] [place] [address] PCP - General Family Medicine 05/22/19
--- OUTSIDE RECORDS SUMMARY | 2024-09-08 02:07 | XMS_ITS | Encounter Summary ---
Author Organization [facility] Address Critical access hospital6 [place] [address] Care Team Providers Care Manager Hotel Name Role Phone Dennys Benito MD, Jian Unavailable [phone] Olya Chou [facility] Unavailable Sayda Vaughn MD Primary Care Provider Jessee Garland MD Unavailable [phone] Encounter Details Date Type Department Care Team (Late st Contact Info) Description 07/28/2018 Abstract [facility] [address] [place] [address] Jian Noyola MD [address] [address] Social History Tobacco Use Types Packs/Day Years Used Date Smoking Tobacco: Former Cigarettes Q uit: 10/03/2009 Smokeless Tobacco: Former Quit: 12/30/1995 Alcohol Use Standard Drinks/Week Comments Yes 0 (1 standard drink = 0.6 oz pur e alcohol) seldom Sex and Gender Information Value Date Recorded Sex Assigned at Not on file Legal Sex Male 11:02 PM CDT Gender Identity Not on file Sexual Orientation Not on file 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 Not on file Not on f ile documented as of this encounter Plan of Treatment Upcoming Encounters Date Type Department Care Team (Late st Contact Info) Description 01/18/2025 9:30 AM PATIENT ESCORT Office Visit [facility]-[address] [place] [address] Olya Chou, [facility]- [address] [facility] [address] [place] [address] documented as of this encounter Procedures Procedure Name Priority Date/Time Associated Diagnosis Comments CMP (ABSTRACTED LAB) Routine 05/19/2018 CBC, AUTO, NO DIFF Routine 05/19/2018 MAGNESIUM Routine 05/19/2018 documented in this encounter Results * MAGNESIUM (05/19/2018) Pathologist [facility] MAGNESIUM 2.0 05/19/2018 us Sayda Vaughn MD LABORATORY Final Result * CMP (ABSTRACTED LAB) (05/19/2018) Pathologist [facility] SODIUM S/P/B 140 POTASSIUM S/P/B 4.0 CHLORIDE S/P/B 104 CO2 30 BUN 19 CREATININE S/P/B 1.1 0.7 - 1.3 EGFR NON-AFR. AMER. 74 <=90 CALCIUM S/P/B 9.2 GLUCOSE 98 mg/dL TOTAL PROTEIN S/P/B 7.9 ALBUMIN S/P/B 3.7 3.5 - 5.0 AST 45 ALT 86 ALKALINE PHOSPHATASE S/P/B 70 BILIRUBIN TOTAL S/P/B 0.7 05/19/2018 us Sayda Vaughn MD LAB-OUTSIDE/ABSTRACTED Final Result * CBC, AUTO, NO DIFF (05/19/2018) Pathologist [facility] WBC 5.8 RBC 5.6 HGB 16.0 HCT 48.0 MCV 87.6 MCH 28.7 MCHC 32.8 RDW 13.2 PLT 257 MPV 9 05/19/2018 us Sayda Vaughn MD LABORATORY Final Result documented in this encounter Visit Diagnoses Not on filedocumented in this encounter Care Teams Manager Hotel Relationship Specialty Start Date End Date Sayda Vaughn MD [address] [place] [address] PCP - General FAMILY PRACTICE 12/30/15 Jian Noyola MD CARDIOVASCULAR DISEASE 12/07/15 Olya Chou, [facility]- [address] [facility] [address] [place] [id number] NURSE PRACTITIONER 12/07/15 Jessee Garland MD [address] [facility] [address] [place] [address] Referring Physician GASTROENTEROLOGY 12/08/18 documented as of this encounter
--- OUTSIDE RECORDS SUMMARY | 2024-09-08 02:07 | XMS_ITS | Encounter Summary ---
Author Organization [facility] Address [facility] [place] [address] Care Team Providers Care Thermal Spray Operator Name Role Phone Dennys Benito MD, Jian Unavailable [phone] O[address] Chou Unavailable [phone] Sayda Vaughn MD Primary Care Provider Jessee Garland MD Unavailable [phone] Reason for Visit * Reason Onset Date Comments Medication Problem 09/14/2021 Repatha cost/ copay card Encounter Details Date Type Department Care Team (Latest Contact Info) Description 09/14/2021 MyCW[employer] Online Message [facility]-[address] [place] [address] Olya Chou, R[facility]Y-[facility] [address] 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 Pt used a copay card and now pharmacy is sayingit is only good for 3 months. I wonder if it is only good for a certain dollar amount. Please contact rep to see if we have alternative option for him. He has commercial insurance but $300/mo will becost prohibitive. Thanks * MICHELLE Medina - 09/17/2021 11:18 AM CDTFrom: Patric Mendez To: Olya Chou Sent: 09/14/2021 10:27 AM CDT Subject: Medication Questions Good morning, This is regarding the rapatha shot. [facility] pharmacist informed me that the assistance program was only for 3mo which has been the amount of time I've been taking it. Now they'll offer $200. off . So with my insurance the amount due is over $300.00 Monthly. I'm hoping there's a more affordable option. So rry for the aggravation with this.. Patric documented in this encounter Plan of Treatment Upcoming Encounters Date Type Department Care Team (Late st Contact Info) Description 01/18/2025 9:30 AM BEREAVEMENT PROGRAM COORDINATOR Office Visit [facility]-[address] [place] [phone] Olya Chou ANP-BC [address] [facility] [address] [place] [address] documented as of this encounter Visit Diagnoses Not on filedocumented in this encounter Care Teams Thermal Spray Operator Relationship Specialty Start Date End Date Sayda Vaughn MD [address] [place], [place] [id number] PCP - General FAMILY PRACTICE 12/30/15 Jian Noyola MD CARDIOVASCULAR DISEASE 12/07/15 Olya Chou, [facility] [address] [facility] [address] [place] [address] NURSE PRACTITIONER 12/07/15 Jessee Garland MD [address] [facility] [address] [place] [address] Referring Physician GASTROENTEROLOGY 12/08/18 documented as of this encounter
--- OUTSIDE RECORDS SUMMARY | 2024-09-08 02:07 | XMS_ITS | Patient Health Record ---
Author Organization Formerly [facility] dicine Address [address] [place] [address] Care Team Providers Care Automation Engineering Manager Name Role Phone Dr. Sayda Vaughn Primary Care Provider [phone] Vikki Khan Unavailable [phone] Dr. Agustin Bonilla Unavailable [phone] Migration, Provider Unavailable Unavailable Allergies No Known Allergies Results Component Value Reference Range Notes Urinalysis Reviewed date:05/24/2024 05:46:21 PM Interpretation: Performing Lab: Notes/Report: Urine-Color Yellow Appearance Clear Specific Hunter 1.010 pH 6.0 Glucose Negative Urine Protein Trace Occult Blood Negative Bilirubin Negative Urobilinogen,Semi-Qn 0.2 Nitrite, Urine Negative Ketones Trace Leucocyte Esterase Negative CT Scan : Chest with contras t Reviewed date:06/11/2024 02:29:11 PM Interpretation: Performing Lab: Notes/Report: CT Abdomen and Pelvis with a nd without contrast ([id number]) Reviewed date:06/11/2024 02:29:39 PM Interpretation: Performing Lab: Notes/Report: Reason For Referral Reason abnormal CT results persistent abd pain Diagnosis 1 Generalized abdomina l pain (R10.84) Diagnosis 2 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 Alfredo Referring Provider Last Name Vaughn Referring Provider Speciality Family Med icine Referred Provider Specialty Gastroentero logy General Notes Shraddha Harrison 06/17 09:08:43 AM CDT >[facility] - needs urgent referral, pt will bring images on disc, Radha Luque 06/17/2024 09:29:07 AM CDT >Referral faxed to [facility] [phone] Kaitlin 07/08/2024 12:12:10 PM CDT >consult note received in chart. Referral Priority Urgent Referral Appointment Date 07/02/2024 Medications Medication SIG (Take, Route, Frequency, Duration) Notes Start Date End Date Status Ipratropium [place] 0.06 % Solution INHALE 2 SPRAYSEACH NOSTRIL 3 TIMES A DAY Nasal; Duration: 90 days Active Albuterol Sulfate HFA 108 (90 Base) MCG/ACT Aerosol Solution 2 puffs as needed Inhalation every 4 hrs; Duration: 17 days As needed Active metFORMIN HCl 500 MG Tablet 1 tablet wit h a meal Orally Once a day Active Clopidogrel Bisulfate 75 MG Tablet 1 Oral every day; Duration: 0 12/26/2020 Active Testosterone 20.25 MG/ACT (1.62%) Gel 1 pump to skin in the morning to shoulder, upper arms or abdomen Transdermal Once a day Active Lisinopril 5 MG Tablet 1 tablet Orally O nce a day; Duration: 90 days Active Nitroglycerin 0.[address] 1 TABLET UNDER TONGUE EVERY 5 MINS, UP TO 3 DOSES NEEDED FOR CHEST PAIN Sublingual; Duration: 14 Days Active Repatha SureClick 140 MG/ML Solution Auto-injector INJECT 1 ML (140 MG TOTAL) INTO THE SKIN EVERY 14 DAYS Subcutaneous; Duration: 28 Days Active Tamsulosin HCl 0.4 MG Capsule 1 capsule Orally Once a day; Duration: 90 days 05/22/2024 Active Immunizations Vaccine Route Administration Date Status Comme nts Tdap IM Intramuscular 04/17/2018 Administered Source VFC Code: : Instructure Covid-19 Vaccine 1st dose IM Intramuscular 04/22/2020 Administered Source VFC Code: : Instructure Covid-19 Vaccine 1st dose IM Intramuscular 05/14/2020 Administered Source VFC Code: : Instructure Covid-19 Vaccine 1st dose IM Intramuscular 11/19/2023 Administered ,sourcename : N ew immunization record ,immstatus : Complete Influenza, seasonal, injectable, preservative free, 3 yrs and above IM Intramuscular 11/19/2023 Administered ,sourcename : N ew immunization record ,immstatus : Complete Influenza, quadrivalent (IIV4), split virus, 6-35 months dosage IM Intramuscular 12/26/2020 Administered Source VFC Code: : Influenza, quadrivalent (IIV4), split virus, 6-35 months dosage IM Intramuscular 12/07/2021 Administered ,sourcename : N ew immunization record ,immstatus : Complete Influenza, quadrivalent (IIV4), split virus, 6-35 months dosage IM Intramuscular 11/29/2022 Administered ,sourcename : N ew immunization record ,immstatus : Complete Social History Tobacco Use: Social History Observation Description Date Details (start date - stop date) Never Smoker NA - NA Social History Household: Social Info Question Answer Notes Household Marital status: Drug/Alcohol: Social Info Question Answer Notes AUDIT-C (Standard) Did you have a drink containing alcohol in the past year? Yes How often did you have a drink containing alcohol in the past year? Monthly or less (1 point) How many drinks did you have on a typical day when you were drinking in the past year? 1 or 2 drinks (0 point) How often did you have six or more drinks on one occasion in the past year? Never (0 point) Points 1 Interpretation Negative Tobacco Use: Social Info Question Answer Notes Tobacco Control (Standard) Tobacco use: Nonsmoker Additional Details Category Social Info Options Details Miscellaneous: Occupation: retired Problems Problem Type SNOMED Code ICD Code Onset Dates Problem Status W/U Status Risk Notes Problem Prediabetes (980487803) Prediabetes (R73.03) 01/03/20 21 Active confirmed Problem Food allergy (318509623) Allergy to other foods (Z91.018) 11/13/19 23 Active confirmed Problem Procedure not carried out (207569486) Procedure and treatment not carried out because of patient's decision for unspecified reasons (Z53.20) 08/22/19 24 Active confirmed Problem Tachycardia (6088269) Tachycardia, unspecified (R00.0) 11/23/19 22 Active confirmed Problem Backache (315946858) Dorsalgia, unspecified (M54.9) 11/08/19 23 Active confirmed Problem Acute exacerbation of chronic obstructive airways disease (217441467) Chronic obstructive pulmonary disease with (acute) exacerbation (J44.1) 11/04/19 24 Active confirmed Problem Atherosclerotic heart disease of tribal coronary artery without angina pectoris (860488610045459) 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) 10/18/19 23 Active confirmed Problem Generalized anxiety disorder (54619209) Generalized anxiety disorder (F41.1) 01/12/20 16 Active confirmed Problem Hyperlipidemia (78576465) Hyperlipidemia, unspecified (E78.5) 04/29/19 22 Active confirmed Problem Obesity (276094850) Obesity, unspecified (E66.9) 11/08/19 23 Active confirmed Problem Benign neoplasm of left adrenal gland (816810223277823) 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) 12/08/19 22 Active confirmed Problem Nocturia (697415367) Nocturia (R35.1) Active confirmed Problem Vaccination given (370421836) Encounter for immunization (Z23) 11/19/19 24 Active confirmed Problem Hyperglycemia (04686188) Hyperglycemia, unspecified (R73.9) 01/15/20 23 Active confirmed Problem Abnormal weight gain (492193275) Abnormal weight gain (R63.5) 12/27/19 21 Active confirmed Problem Fatigue (96749986) Other fatigue (R53.83) 03/20/19 22 Active confirmed Problem Diarrhea (13597514) Diarrhea, unspecified (R19.7) 12/20/19 23 Active confirmed Problem Abdominal pain (78721743) Unspecified abdominal pain (R10.9) 01/22/20 23 Active confirmed Problem Allergic rhinitis (17550144) Allergic rhinitis, unspecified (J30.9) 12/20/19 23 Active confirmed Problem Old myocardial infarction (1056078) Old myocardial infarction (I25.2) 08/22/19 24 Active confirmed Problem Essential hypertension (94768833) Essential (primary) hypertension (I10) 08/22/19 24 Active confirmed Problem Anxiety disorder (035677043) Anxiety disorder, unspecified (F41.9) 12/20/19 23 Active confirmed Problem Moderate recurrent major depression (05622653) Major depressive disorder, recurrent, moderate (F33.1) 12/20/19 23 Active confirmed Problem Mild major depression, single episode (96132398) Major depressive disorder, single episode, mild (F32.0) 11/23/19 22 Active confirmed Problem Hypercalcemia (14993468) Hypercalcemia (E83.52) 12/28/19 23 Active confirmed Problem Testicular hypofunction (132413400) Testicular hypofunction (E29.1) 03/20/19 22 Active confirmed Problem Screening for malignant neoplasm of prostate (549779658) Encounter for screening for malignant neoplasm of prostate (Z12.5) 10/18/19 23 Active confirmed Vital Signs Heart Rate 91 /min 06/26/2024 Temperature 96.4 degrees Fahrenheit 06/26/2024 Respiratory Rate 18 /min 06/26/2024 Blood pressure diastolic 80 mm Hg 06/26/2024 Height-cm 180.34 cm 06/26/2024 Oximetry 94 % 06/26/2024 Weight-kg 115.4 kg 06/26/2024 Height 71.00 in 06/26/2024 Blood pressure systolic 114 mm Hg 06/26/2024 Weight 254.4 lbs 06/26/2024 BMI 35.48 kg/m2 06/26/2024 Encounters Encounter Location Date Provider Diagnosis [address] [address] 11/04/2023 Dr. Agustin Bonilla Allergic rhinitis, unspecified J30.9 and Chronic obstructive pulmonary disease with (acute) exacerbation J44.[address] [address] 11/19/2023 Dr. Sayda Vaughn Encounter for immunization Z23 [address] [address] 04/20/2024 Vikki Khan Other specified respiratory disorders J98.[address] [address] 05/22/2024 Vikki Khan Right flank pain R10 .9 ; Right-sided chest wall pain R07.89 and Nocturia R35.[address] [address] 06/26/2024 Vikki Khan Chronic obstructive pulmonary disease with (acute) exacerbation J44.1 ; Essential (primary) hypertension I10 ; Hyperlipidemia, unspecified E78.5 ; Atherosclerotic heart disease of tribal coronary artery without angina pectoris I25.10 ; Benign neoplasm of left adrenal gland D35.02 ; Nocturia R35.1 ; Testicular hypofunction E29.1 ; Prediabetes R73.03 ; Fatty liver K76.0 ; Symptomatic abdominal panniculus E65 ; Encounter for screening for malignant neoplasm of prostate Z12.5 and Multiple allergies Z88.[address] [address] 01/11/2024 Provider Migration [address] [address] 01/12/2024 Provider Migration [address] [address] 06/03/2024 Dr. Sayda Vaughn [address] [address] 07/10/2024 Dr. Sayda Vaughn Assessments Encounter Date Diagnosis (ICD Code) Assessment Notes Treatment Notes Treatment Clinical Notes Section Notes 04/20/2024 Other specified respiratory disorders (ICD-10 - J98.8) Sx's are consistent with bronchitis. He has used albuterol in the past, but needs a refill. He also needs a refill of nasal spray. Will also treat with Zpak. Advised that bronchitis and cough for about 6 weeks. Call with any new or worrisome concerns. 06/26/2024 Essential (primary) hypertension (ICD-10 - I10) Blood pressure well-controlled on lisinopril. 05/22/2024 Right flank pain (ICD-10 - R10.9) -Pain over lateral/posterior rib area. Pain to palpation and he feels restricted with movements to the right. He feels like there is something inside causing pain and limiting movement. -Pain palpation, but no palpable masses. -UA is unremarkable -DDx- Muscle strain, radicular thoracic spine pain, enlarged liver, kidney mass, pleurisy, pleural effusion, and many other considerations -Will get CT abd/pelvis and CT of lung - 05/22/2024 Right-sided chest wall pain (ICD-10 - R07.89) -Will get imaging to evaluate abdominal or thoracic cavity structural concerns -If CTs are negative then would like to image back. 06/26/2024 Chronic obstructive pulmonary disease with (acute) exacerbation (ICD-10 - J44.1) -Has COPD on diagnosis list, he is not on daily medication, but uses albuterol as needed. 11/04/2023 Allergic rhinitis, unspecified (ICD-10 - J30.9) 11/04/2023 Chronic obstructive pulmonary disease with (acute) exacerbation (ICD-10 - J44.1) 11/19/2023 Encounter for immunization (ICD-10 - Z23) 06/26/2024 Hyperlipidemia, unspecified (ICD-10 - E78.5) -Hx of cardiac stent, he is on Repatha which at times is too expensive 05/22/2024 Nocturia (ICD-10 - R35.1) -Getting up 3-4 times per night. Will initiate tamsulosin to see fi that will be helpufl. 06/26/2024 Atherosclerotic heart disease of tribal coronary artery without angina pectoris (ICD-10 - I25.10) - History of cardiac stents and use of Plavix. Blood pressure well-controlled on lisinopril. Repatha for hyperlipidemia 06/26/2024 Benign neoplasm of left adrenal gland (ICD-10 - D35.02) - No adrenal gland mass present. Previous CAT scan showed a possible mass, but follow-up MRI confirmed it was a vein causing nodular appearance.- No further action required as current CAT scan shows normal adrenal glands. 06/26/2024 Nocturia (ICD-10 - R35.1) - Tamsulosin may not be effective for urinary symptoms. Possible overactive bladder considered.-Discu ssed continuing tamsulosin or try something for OAB -No med adjustments today 06/26/2024 Testicular hypofunction (ICD-10 - E29.1) -Follows with endocrinology, on Androgel 06/26/2024 Prediabetes (ICD-10 - R73.03) -Will recheck labs. 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 Potential underlying autoimmune issue suggested.- Consider holding metformin temporarily to assess impact on stomach issues -After visit with patient, reviewed records and he had food allergy testing and had several positive findings. Not sure if he had seen [employer] which was suggested -Will look inot food allergies as possible reason for stomach issues. 06/26/2024 Encounter for screening for malignant neoplasm of prostate (ICD-10 - Z12.5) -Will check PSA 06/26/2024 Multiple allergies (ICD-10 - Z88.9) After OV reviewed records, and he had [facility] allergy panel and food allergy panel. Environmental allergies had many flagged things but the highest tree nuts and glory grass. Food allerges were wheat, soy, corn, scallops, and clams. Celiac panel has been negative. -Discussed case with Dr. Vaughn and recommend doing an Alpha-Gal -Will call patient and see if he ever saw [employer]. Plan Of Treatment Next Appt Details Provider Name:Dr. Sayda medina, 12/28/2024 11:00:00 AM, [address] [place] [address] [place], [address], [phone] Insurance Providers Payer Name Payer Address Payer Phone Subscriber Number Group Number Insured Name Patient Relationship to Insured Coverage Start Date Coverage End Date [employer] [address] [place] [address] [id number] Patric Velázquez Self - patient is the insured 5 Medical (General) History Medical History History ICD Code Nocturia R35.1 Hyperglycemia, unspecified R73.9 Dorsalgia, unspecified M54.9 Testicular hypofunction E29.1 Anxiety disorder, unspecified F41.9 Old myocardial infarction I25.2 Benign neoplasm of left adrenal gland D3 5.02 Abdominal distension (gaseous) R14.0 Atherosclerotic heart diseas e of tribal coronary artery without angina pectoris I25.10 Small intestinal bacterial overgrowth, u nspecified K63.8219 Encounter for screening for malignant ne oplasm of prostate Z12.5 Procedure and treatment not carried out because of patient's decision for unspecified reasons Z53.20 Unspecified abdominal pain R10.9 Tachycardia, unspecified R00.0 Hyperlipidemia, unspecified E78.5 Encounter for immunization Z23 Allergy to other foods Z91.018 Allergic rhinitis, unspecified J30.9 Abnormal weight gain R63.5 Obesity, unspecified E66.9 Hypercalcemia E83.52 Other fatigue R53.83 Essential (primary) hypertension I10 Diarrhea, unspecified R19.7 Prediabetes R73.03 Generalized anxiety disorder F41.1 Chronic obstructive pulmonary disease, u nspecified J44.9 Chronic obstructive pulmonary disease wi th (acute) exacerbation J44.1 Major depressive disorder, recurrent, mo derate F33.1 Major depressive disorder, single episod e, mild F32.0 Surgical History Surgery Date(Month/Year) cholecystectomy ,notes : 04/11/23 Cardiac Cath ,notes : x2- no stents plac ed. Colonoscopy, flexible, proxi mal to splenic flexure; diagnostic, with or without collection of specim 01/12/2016
--- OUTSIDE RECORDS SUMMARY | 2024-09-08 02:07 | XMS_ITS | Encounter Summary ---
Author Organization [facility] Address Formerly [facility] [place] [address] Care Team Providers Care Document Imaging Manager Name Role Phone Dennys Benito MD, Robert Unavailable [phone] Olya Chou Unavailable Sayda Vaughn MD Primary Care Provider Jessee Garland MD Unavailable [phone] Encounter Details Date Type Department Care Team (Late st Contact Info) Description 12/12/2021 [employer] Message [facility] [place] [address] Olya Chou, ANP-BC [address] [facility] [address] [place] [address] Blood work? 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 No / Unsure 11/22/2021 4:09 PM CDT documented as of this encounter Plan of Treatment Upcoming Encounters Date Type Department Care Team (Late st Contact Info) Description 01/18/2025 9:30 AM UNIT TECHNICIAN Office Visit [facility] [address] [place] [address] Olya Chou ANP-BC [address] [facility] [address] [place] [address] documented as of this encounter Visit Diagnoses Not on filedocumented in this encounter Care Teams Document Imaging Manager Relationship Specialty Start Date End Date Sayda Vaughn MD [address] [place], [place] [phone] PCP - General FAMILY PRACTICE 12/30/15 Jian Noyola MD CARDIOVASCULAR DISEASE 12/07/15 Olya Chou ANP-BC [address] [facility] [address] [place] [phone] NURSE PRACTITIONER 12/07/15 Jessee Garland MD [address] [facility] [address] [place] [address] Referring Physician GASTROENTEROLOGY 12/08/18 documented as of this encounter
--- OUTSIDE RECORDS SUMMARY | 2024-09-08 02:07 | XMS_ITS | Encounter Summary ---
Author Organization [facility] Address [facility] [place] [address] Care Team Providers Care Splunk Dashboard Developer Name Role Phone Dennys Benito MD, Robert Unavailable [phone] Olya Chou Unavailable Sayda Vaughn MD Primary Care Provider Jessee Garland MD Unavailable [phone] Encounter Details Date Type Department Care Team (Late st Contact Info) Description 12/08/2020 [employer] Message [facility] [place] [address] Olya Chou, ANP-BC [address] [facility] [address] [place] [address] RE: Other Social History Tobacco Use Types Packs/Day Years [...] Industry Job Start Date Job End Date [employer] 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 No / Unsure 11/10/2020 12:38 PM CDT documented as of this encounter Plan of Treatment Upcoming Encounters Date Type Department Care Team (Late st Contact Info) Description 01/18/2025 9:30 AM BUSINESS OPERATIONS CONSULTANT Office Visit [facility] [place] [address] Olya Chou ANP-BC [address] [facility] [address] [place] [phone] documented as of this encounter Visit Diagnoses Not on filedocumented in this encounter Care Teams Splunk Dashboard Developer Relationship Specialty Start Date End Date Sayda Vaughn MD [address] [place], [place] [phone] PCP - General FAMILY PRACTICE 12/30/15 Jian Noyola MD CARDIOVASCULAR DISEASE 12/07/15 Olya Chou ANP-BC [address] [facility] [address] [place] [phone] NURSE PRACTITIONER 12/07/15 Jessee Garland MD [address] [facility] [address] [place] [address] Referring Physician GASTROENTEROLOGY 12/08/18 documented as of this encounter
--- OUTSIDE RECORDS SUMMARY | 2024-09-08 02:07 | XMS_ITS | Encounter Summary ---
Author Organization [facility] Address Formerly [facility] [place] [address] Care Team Providers Care Floor Finisher Helper Name Role Phone Jose L Lewis MD Primary Care Provider [phone] Dennys Benito MD, Jian Unavailable [phone] Olya Chou [facility] Unavailable Sayda Vaughn MD Primary Care Provider Jessee Garland MD Unavailable [phone] Encounter Details Date Type Department Care Team (Late st Contact Info) Description 09/23/2014 Abstract [facility] [address] [place] [address] Jian Noyola MD [address] [address] Social History Tobacco Use Types Packs/Day Years Used Date Smoking Tobacco: Former Cigarettes Q uit: 10/03/2009 Alcohol Use Standard Drinks/Week Comments No 0 (1 standard drink = 0.6 oz pur e alcohol) Sex and Gender Information Value Date Recorded Sex Assigned at Not on file Legal Sex Male 11:02 PM CDT Gender Identity Not on file Sexual Orientation Not on file Occupation Industry Job Start Date Job End Date 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 Not on file Not on file Not on file documented as of this encounter Plan of Treatment Upcoming Encounters Date Type Department Care Team (Late st Contact Info) Description 01/18/2025 9:30 AM LANGUAGES AND LITERATURE INSTRUCTOR Office Visit [facility] [place] [address] Olya Chou ANP-BC [address] [facility] [address] [place] [phone] documented as of this encounter Visit Diagnoses Not on filedocumented in this encounter Care Teams Floor Finisher Helper Relationship Specialty Start Date End Date Jose L Lewis MD PCP - General FAMILY PRACTICE 12/07/15 12/29/15 Sayda Vaughn MD [address] [place], [place] [phone] PCP - General FAMILY PRACTICE 12/30/15 Jian Noyola MD CARDIOVASCULAR DISEASE 12/07/15 Olya Chou, ANP-BC [address] [facility] [address] [place] [phone] NURSE PRACTITIONER 12/07/15 Jessee Garland MD [address] [facility] [address] [place] [address] Referring Physician GASTROENTEROLOGY 12/08/18 documented as of this encounter
--- OUTSIDE RECORDS SUMMARY | 2024-09-08 02:07 | XMS_ITS | Clinical Summary ---
Author Organization [facility] Address [address] [place] [address] Care Team Providers Care Substation Operator Automatic Name Role Phone Dennys Benito MD, Robert Unavailable [phone] Olya Chou [facility] Unavailable [phone] Sayda Vaughn MD Primary Care Provider Jessee Garland MD Unavailable [phone] Allergies Active Allergy Reactions Criticality Noted Date Comments Fenofibrate Myalgias 12/28/2015 Statins Myalgias 09/29/2018 Ezetimibe Shortness of Breath High 01/21/2023 Medications albuterol sulfate HFA 108 (90 Base) MCG/ACT inhaler 1 Active fluticasone propionate (FLONASE) 50 MCG/ACT nasal spray INHALE 1 SPRAY EVERY DAY IN EACH NOSTRIL NEEDED 2 Active testosterone (ANDROGEL) 20.25 MG/ACT (1.62%) Gel 1.5 pumps daily 2 Active lisinopril (PRINIVIL) 5 MG tablet Take 1 tablet (5 mg total) by mouth daily. 3 Active ipratropium (ATROVENT) 0.06 % nasal spray 2 sprays by Nasal route 2 (two) times a day. Active nitroglycerin (NITROSTAT) 0.[address] 1 tablet (0.4 mg total) under the tongue every 5 (five) minutes as needed for Chest Pain. Maximum of 3 doses. 30 tablet 1 4 01/13/20 25 Active clopidogrel (PLAVIX) 75 MG tablet TAKE 1 TABLET BY MOUTH EVERY DAY 90 tablet 3 4 Active evolocumab (REPATHA SURECLICK) 140 MG/ML injection (PEN) INJECT 1 ML (140 MG TOTAL) INTO THE SKIN EVERY 14 DAYS 1 Pen 6 5 Active tamsulosin (FLOMAX) 0.4 MG Cap Take 1 capsule (0.4 mg total) by mouth daily. 5 Active omeprazole (PRILOSEC) 40 MG capsule TAKE 1 CAPSULE (40 MG TOTAL) BY MOUTH DAILY. 90 capsule 3 3 08/25/19 25 Discontinue d(Discontin ued by another clinician) Active Problems Problem Noted Date Diagnosed Date Dyspnea on exertion 08/15/2017 TGA (transient global amnesia) 12/18/2016 Chest pain in adult 12/30/2015 CAD (coronary artery disease) Hyperglycemia Overview (12/28/2015): diet-controlled Dyslipidemia COPD (chronic obstructive pu lmonary disease) ([facility]) HLD (hyperlipidemia) Essential hypertension Encounters Date Type Department Care Team Description 08/31/2024 Abstract [facility] [address] [place] [address] Abstract, Doc Pccl 08/24/2024 1:00 PM CDT Office Visit [facility] [place] [address] Olya Chou ANP-PATRIA Follow Up 08/24/2024 Travel 07/15/2024 Telephone [facility] [address] [place] [address] Olya Chou ANP-BC Medication from Last 3 Months Family History Medical History Relation Comments Heart Attack Father Stroke Father Stroke Mother carotid endarterectomy Mother Open Heart Paternal Grandfather Relation Status Comments Brother Alive Father (Age 59) Maternal Grandfather Maternal Grandmother Mother Alive Paternal Grandfather (Age 94) Paternal Grandmother (Age 89) Sister Alive Social History Tobacco Use Types Packs/Day Years Used Date Smoking Tobacco: Former Cigarettes Q uit: 10/03/2009 Smokeless Tobacco: Former Chew Quit: 12/30/1995 Tobacco Cessation:Counseling Given: Not Answered Alcohol Use Standard Drinks/Week Comments Not Currently 0 (1 standard drink = 0.6 oz pur e alcohol) 1-2 weekly Sex and Gender Information Value Date Recorded Sex Assigned at Not on file Legal Sex Male 11:02 PM CDT Gender Identity Not on file Sexual Orientation Not on file 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 on file Not on file Not on f ile Last Filed Vital Signs Vital Sign Reading Time Taken Comments Blood Pressure 116/82 08/24/2024 12:56 PM CDT Pulse 91 08/24/2024 12:56 PM CDT Temperature 36.6 C (97.8 F) 12/18/2018 10:45 AM COMPLIANCE REPRESENTATIVE DEALER Respiratory Rate 16 08/24/2024 12:5 6 PM CDT Oxygen Saturation 95% 08/24/2024 12: 56 PM CDT Inhaled Oxygen Concentration - - Weight 114.9 kg (253 lb 3.2 oz) 025 12:56 PM CDT Height 180.3 cm (5' 11) 08/24/2024 12: 56 PM CDT Body Mass Index 35.31 08/24/2024 12:56 PM CDT Plan of Treatment Upcoming Encounters Date Type Department Care Team (Late st Contact Info) Description 01/18/2025 9:30 AM COMPLIANCE REPRESENTATIVE DEALER Office Visit [facility] [place] [phone] Olya Chou, ANP- [address] [facility] [address] [place] [address] Health Maintenance Due Date Last Done Comments Annual Physical 09/25/1966 Hepatitis C 09/25/1981 Pneumococcal Vaccine: 50+ Years (1 of 2 - PCV) 09/25/1982 Zoster Vaccines (1 of 2) 09/25/2013 RSV Immunization or 60+ Years (1 - Risk 60-74 years 1-dose series) 2023 COVID-19 Vaccine (4 - 2023-2 5 season) 2024 11/19/2023, 05/14/2020, 04/22/2020 DTaP, Tdap and Td Vaccines ( 2 - Td or Tdap) 04/17/2028 04/17/2018 Colorectal Cancer Screening Colonoscopy (10 Years) 12/18/2028 12/18/2018 Meningococcal B Vaccine Aged Out No l onger eligible based on patient's age to complete this topic Meningococcal Vaccine Aged Out No aureliano nicky eligible based on patient's age to complete this topic RSV Immunizations Under 20 Months Aged Out No longer eligible b ased on patient's age to complete this topic Procedures Procedure Name Priority Date/Time Associated Diagnosis Comments COMPREHENSIVE METABOLIC PANEL Routine 07/31/2024 CBC, MANUAL DIFF Routine 07/31/2024 HEMOGLOBIN, GLYCOSYLATED Routine 07/31/2024 THYROID STIM HORMONE TSH Routine 07/31/2024 from Last 3 Months Results * HEMOGLOBIN, GLYCOSYLATED (07/31/2024) HGB A1C 6.1 % Narrative Resulting Agency Comment [facility] us Default History Genericprovider LABORATORY Final Result * COMPREHENSIVE METABOLIC PANEL (07/31/2024) SODIUM S/P/B 138 GLUCOSE 116 mg/dL AST 36 BUN 24 CREATININE S/P/B 1.01 0.7 - 1.3 CALCIUM S/P/B 9.7 POTASSIUM S/P/B 4.8 CHLORIDE S/P/B 103 ALT 42 GFR ESTIMATE >60 Narrative Resulting Agency Comment [facility] us Default History Genericprovider LABORATORY Final Result * CBC, MANUAL DIFF (07/31/2024) WBC 6.2 HGB 16.0 HCT 49.3 PLT 235 Narrative Resulting Agency Comment [facility] us Default History Genericprovider LABORATORY Final Result * THYROID STIM HORMONE TSH (07/31/2024) TSH 2.090 Narrative [facility]ing Agency [facility] Result Type Result Stat us Default History Genericprovider LABORATORY Final Result from Last 3 Months Insurance [employer] Advance Directives Documents on File Type Date Recorded Patient Foam Rubber Molder Expl anation Advance Directives and Living Will 10/19/2013 12:00 AM ADVANCED DIRECTIVES Care Teams Substation Operator Automatic Relationship Specialty Start Date End Date Sayda Vaughn MD [address] [place] [address] PCP - General FAMILY PRACTICE 12/30/15 Jian Noyola MD CARDIOVASCULAR DISEASE 12/07/15 Olya Chou, ANP- [address] [facility] [address] [place] [address] NURSE PRACTITIONER 12/07/15 Jessee Garland MD [address] [facility] [address] [place] [address] Referring Physician GASTROENTEROLOGY 12/08/18
--- OUTSIDE RECORDS SUMMARY | 2024-09-08 02:07 | XMS_ITS | Encounter Summary ---
Author Organization [facility] Address [facility] [place] [address] Care Team Providers Care Vice President Payer Name Role Phone Dennys Benito MD, Robert Unavailable [phone] Olya Chou Unavailable Sayda Vaughn MD Primary Care Provider Jessee Garland MD Unavailable [phone] Encounter Details Date Type Department Care Team (Late st Contact Info) Description 05/20/2018 Abstract [facility] [address] [place] [address] Olya Chou, RUSTY- [address] [facility] [address] [place] [address] Social History Tobacco Use Types Packs/Day Years [...] Industry 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 on file Not on file Not on f ile documented as of this encounter Plan of Treatment Upcoming Encounters Date Type Department Care Team (Late st Contact Info) Description 01/18/2025 9:30 AM SEWING MACHINE REPAIRER HELPER Office Visit [facility] [address] [place] [address] Olya Chou, ANP- [address] [facility] [address] [place] [address] documented as of this encounter Procedures Procedure Name Priority Date/Time Associated Diagnosis Comments CMP (ABSTRACTED LAB) Routine 05/10/2018 LIPID PANEL Routine 04/13/2018 CBC, MANUAL DIFF Routine 04/13/2018 documented in this encounter Results * (ABNORMAL) CMP (ABSTRACTED LAB) (05/10/2018) SODIUM S/P/B 141 POTASSIUM S/P/B 4.7 CHLORIDE S/P/B 104 CO2 24 BUN 20 CREATININE S/P/B 0.89 0.7 - 1.3 EGFR AFR. AMER. 113 EGFR NON-AFR. AMER. 97(A) <=90 CALCIUM S/P/B 9.2 GLUCOSE 99 mg/dL TOTAL PROTEIN S/P/B 7.3 ALBUMIN S/P/B 4.4 3.5 - 5.0 AST 27 ALT 37 ALKALINE PHOSPHATASE S/P/B 72 BILIRUBIN TOTAL S/P/B 0.5 05/10/2018 us Sayda Vaughn MD LAB-OUTSIDE/ABSTRACTED Final Result * CBC, MANUAL DIFF (04/13/2018) WBC 5.9 RBC 5.15 HGB 15.3 HCT 45.2 MCV 88 MCH 29.7 MCHC 33.8 RDW 13.5 PLT 240 NEUTROPHILS % 49 LYMPHOCYTES % 34 MONOCYTES % 9 EOSINOPHILS % 8 BASOPHILS % 0 ABS. NEUTROPHILS 2.9 ABS. LYMPHOCYTES 2.0 ABS. MONOCYTES 0.5 ABS. EOSINOPHILS 0.5 ABS. BASOPHILS 0.0 04/13/2018 us Sayda Vaughn MD LABORATORY Final Result * LIPID PANEL (04/13/2018) CHOLESTEROL 195 HDL 37 TRIGLYCERIDES 220 LDL (CALCULATED) 114 VLDL CALCULATION 44 04/13/2018 Sayda Vaughn MD LABORATORY Final Result documented in this encounter Visit Diagnoses Not on filedocumented in this encounter Care Teams Vice President Payer Relationship Specialty Start Date End Date Sayda Vaughn MD [address] [place] [address] PCP - General FAMILY PRACTICE 12/30/15 Jian Noyola MD CARDIOVASCULAR DISEASE 12/07/15 Olya Chou, [facility]- [address] [facility] [address] [place] [phone] NURSE PRACTITIONER 12/07/15 Jessee Garland MD [address] [facility] [address] [place] [address] Referring Physician GASTROENTEROLOGY 12/08/18 documented as of this encounter
--- OUTSIDE RECORDS SUMMARY | 2024-09-08 02:07 | XMS_ITS | Encounter Summary ---
Author Organization [facility] Address [facility] [place] [address] Care Team Providers Care Overhead Crane Technician Name Role Phone Dennys Benito MD, Jian Unavailable [phone] Olya Chou [facility] Unavailable [phone] Sayda Vaughn MD Primary Care Provider Jessee Garland MD Unavailable [phone] Encounter Details Date Type Department Care Team (Late st Contact Info) Description 10/03/2018 Abstract [facility] [address] [place] [address] Jian Noyola MD [address] [address] Social History Tobacco Use Types [...] Industry 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 Not on file Not on file Not on f ile documented as of this encounter Plan of Treatment Upcoming Encounters Date Type Department Care Team (Late st Contact Info) Description 01/18/2025 9:30 AM PUPPY TRAINER Office Visit [facility] [place] [address] Olya Chou ANP-BC [address] [facility] [address] [place] [address] documented as of this encounter Procedures Procedure Name Priority Date/Time Associated Diagnosis Comments LIPID PANEL Routine 10/02/2018 documented in this encounter Results * LIPID PANEL (10/02/2018) CHOLESTEROL 115 HDL 35 TRIGLYCERIDES 193 CHOL/HDL RATIO 3 LDL (CALCULATED) 41 10/02/2018 Olya MARTINEZ LABORATORY Edited R esult - Final documented in this encounter Visit Diagnoses Not on filedocumented in this encounter Care Teams Overhead Crane Technician Relationship Specialty Start Date End Date Sayda Vaughn MD [address] [place] [address] PCP - General FAMILY PRACTICE 12/30/15 Jian Noyola MD CARDIOVASCULAR DISEASE 12/07/15 Olya Chou ANP-BC [address] [facility] [address] [place] [address] NURSE PRACTITIONER 12/07/15 Jessee Garland MD [address] [place] [address] Referring Physician GASTROENTEROLOGY 12/08/18 documented as of this encounter
--- OUTSIDE RECORDS SUMMARY | 2024-09-08 02:08 | XMS_ITS | Encounter Summary ---
Author Organization [facility] Address [facility] [place] [address] Care Team Providers Care Load Blocker Name Role Phone Dennys Benito MD, Robert Unavailable [phone] Olya Chou Unavailable Sayda Vaughn MD Primary Care Provider Jessee Garland MD Unavailable [phone] Encounter Details Date Type Department Care Team (Late st Contact Info) Description 06/12/2021 Gift Card Combo Message [facility] [place] [address] Olya Chou, ANP-BC [address] [facility] 47 [place] [address] EKG Social History Tobacco Use Types Packs/Day Years [...] 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 No / Unsure 06/12/2021 7:48 AM CDT documented as of this encounter Plan of Treatment Upcoming Encounters Date Type Department Care Team (Late st Contact Info) Description 01/18/2025 9:30 AM POULTRY HUSBANDRY WORKER Office Visit [facility] [address] [phone] Olya Chou ANP-BC [address] [facility] [address] [place] [address] documented as of this encounter Visit Diagnoses Not on filedocumented in this encounter Care Teams Load Blocker Relationship Specialty Start Date End Date Sayda Vaughn MD [address] [place], [place] [phone] PCP - General FAMILY PRACTICE 12/30/15 Jian Noyola MD CARDIOVASCULAR DISEASE 12/07/15 Olya Chou ANP-BC [address] [facility] [address] [place] [address] NURSE PRACTITIONER 12/07/15 Jessee Garland MD [address] [facility] [address] [place] [address] Referring Physician GASTROENTEROLOGY 12/08/18 documented as of this encounter
--- OUTSIDE RECORDS SUMMARY | 2024-09-08 02:08 | XMS_ITS | Encounter Summary ---
Author Organization [facility] Address [facility] [place] [address] Care Team Providers Care Out And Out Cigar Maker Hand Name Role Phone Dennys Benito MD, Robert Unavailable [phone] Olya Chou-PATRIA Unavailable [phone] Sayda Vaughn MD Primary Care Provider Jessee Garland MD Unavailable [phone] Encounter Details Date Type Department Care Team (Late st Contact Info) Description 03/10/2024 Switchable Solutionst Message [facility] [place] [address] Olya Chou, ANP-BC [address] [facility] 47 [place] [address] Repatha Social History Tobacco Use Types Packs/Day Years [...] Industry 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 [address] [place] [address] documented as of this encounter Visit Diagnoses Not on filedocumented in this encounter Care Teams Out And Out Cigar Maker Hand Relationship Specialty Start Date End Date Sayda Vaughn MD [address] [place] [address] PCP - General FAMILY PRACTICE 12/30/15 Jian Noyola MD CARDIOVASCULAR DISEASE 12/07/15 Olya Chou ANP-BC [address] [facility] [address] [place] [address] NURSE PRACTITIONER 12/07/15 Jessee Garland MD [address] [address] Referring Physician GASTROENTEROLOGY 12/08/18 documented as of this encounter
--- OUTSIDE RECORDS SUMMARY | 2024-09-08 02:08 | XMS_ITS | Encounter Summary ---
Author Organization [facility] Address [facility] [place] [address] Care Team Providers Care Bondactor Machine Operator Name Role Phone Dennys Benito MD, Robert Unavailable [phone] Olya Chou Unavailable Sayda Vaughn MD Primary Care Provider Jessee Garland MD Unavailable [phone] Encounter Details Date Type Department Care Team (Late st Contact Info) Description 06/04/2023 KillerStartupst Message [facility] [place] [address] Olya Chou, ANP-BC [address] [facility] [address] [place] [address] Lipids Social History Tobacco Use Types Packs/Day Years [...] Industry Job 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 Not on file Not on f ile documented as of this encounter Plan of Treatment Upcoming Encounters Date Type Department Care Team (Late st Contact Info) Description 01/18/2025 9:30 AM BUSINESS ENTERPRISE OFFICER Office Visit [facility] [address] Olya Chou ANP-BC [address] [facility] [address] [place] [address] documented as of this encounter Visit Diagnoses Not on filedocumented in this encounter Care Teams Bondactor Machine Operator Relationship Specialty Start Date End Date Sayda Vaughn MD [address] [place] [address] PCP - General FAMILY PRACTICE 12/30/15 Jian Noyola MD CARDIOVASCULAR DISEASE 12/07/15 Olya Chou ANP-BC [address] [facility] [address] [place] [address] NURSE PRACTITIONER 12/07/15 Jessee Garland MD [address] [facility] [address] [place] [address] Referring Physician GASTROENTEROLOGY 12/08/18 documented as of this encounter
--- OUTSIDE RECORDS SUMMARY | 2024-09-08 02:08 | XMS_ITS | Encounter Summary ---
Author Organization [facility] Address [facility] [place] [address] Care Team Providers Care Manufacturer'S Representative Name Role Phone Dennys Benito MD, Robert Unavailable [phone] Olya Chou Unavailable Sayda Vaughn MD Primary Care Provider Jessee Garland MD Unavailable [phone] Encounter Details Date Type Department Care Team (Late st Contact Info) Description 06/13/2021 CollegeZen Message [facility] [place] [address] Olya Chou, ANP-BC [address] [facility] 47 [place] [address] Repatha Social History Tobacco Use Types Packs/Day [...] Industry 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 No / Unsure 06/12/2021 7:48 AM CDT documented as of this encounter Progress Notes * Nelson Ingram RN - 06/14/2021 3:09 PM CDT [facility] called, either with or without insurance and Repatha card, they are unable to process pt's script. I called insurance listed inchart. They say it is the wrong insurance. Called pt and left message for a call back. When he does we need to get correct insurance documented in this encounter Plan of Treatment Upcoming Encounters Date Type Department Care Team (Late st Contact Info) Description 01/18/2025 9:30 AM GUEST RELATIONS RECEPTIONIST Office Visit [facility] [place] [address] Olya Chou ANP-BC [address] [address] documented as of this encounter Visit Diagnoses Not on filedocumented in this encounter Care Teams Manufacturer'S Representative Relationship Specialty Start Date End Date Sayda Vaughn MD [address] [place] [address] PCP - General FAMILY PRACTICE 12/30/15 Jian Noyola MD CARDIOVASCULAR DISEASE 12/07/15 Olya Chou ANP-BC [address] [address] NURSE PRACTITIONER 12/07/15 Jessee Garland MD [address] [facility] [address] [place] [address] Referring Physician GASTROENTEROLOGY 12/08/18 documented as of this encounter
--- OUTSIDE RECORDS SUMMARY | 2024-09-08 02:08 | XMS_ITS | Encounter Summary ---
Author Organization [facility] Address [facility]6 [place] [address] Care Team Providers Care Barrel Inspector Name Role Phone Dennys Benito MD, Robert Unavailable Olya Chou-PATRIA Unavailable [phone] Sayda Vaughn MD Primary Care Provider Jessee Garland MD Unavailable [phone] Encounter Details Date Type Department Care Team (Late st Contact Info) Description 2023 RedShift Systemst Message [facility] [place] [address] Olya Chou, ANP-BC [address] 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 [address] [place] [address] documented as of this encounter Visit Diagnoses Not on filedocumented in this encounter Care Teams Barrel Inspector Relationship Specialty Start Date End Date Sayda Vaughn MD [address] [place] [address] PCP - General FAMILY PRACTICE 12/30/15 Jian Noyola MD CARDIOVASCULAR DISEASE 12/07/15 Olya Chou ANP-BC [address] [facility] [address] [place] [address] NURSE PRACTITIONER 12/07/15 Jessee Garland MD [address] [address] Referring Physician GASTROENTEROLOGY 12/08/18 documented as of this encounter
--- OUTSIDE RECORDS SUMMARY | 2024-09-08 02:08 | XMS_ITS | Encounter Summary ---
Author Organization [facility] Address [facility] [place] [address] Care Team Providers Care Compliance Advisor Name Role Phone Dennys Benito MD, Robert Unavailable [phone] Olya Chou Unavailable [phone] Sayda Vaughn MD Primary Care Provider Jessee Garland MD Unavailable [phone] Encounter Details Date Type Department Care Team (Late st Contact Info) Description 08/08/2022 MyChart Message Enc [facility] - [facility] [address] [place] [phone] [place], [facility] Provider Air Quality Message Social History Tobacco Use Types Packs/Day Years [...] Industry Job 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 [address] [place] [address] documented as of this encounter Visit Diagnoses Not on filedocumented in this encounter Care Teams Compliance Advisor Relationship Specialty Start Date End Date Sayda Vaughn MD [address] [place] [address] PCP - General FAMILY PRACTICE 12/30/15 Jian Noyola MD CARDIOVASCULAR DISEASE 12/07/15 Olya Chou ANP-BC [address] [facility] [address] [place] [address] NURSE PRACTITIONER 12/07/15 Jessee Garland MD [address] [place] [address] Referring Physician GASTROENTEROLOGY 12/08/18 documented as of this encounter
--- OUTSIDE RECORDS SUMMARY | 2024-09-08 02:08 | XMS_ITS | Continuity of Care Document ---
Author Organization [facility] Address [address] [place] [address] [address] [place] [address] Phone Care Team Providers Care Store Manager Name Role Phone Gamez OD, Wiley Unavailable Unavailable Procedures Procedure Date Eye Exam & Treatment Refraction Advance Directives Directive Yes / No Effective Date File Name No Information Encounters Encounter Description Practice Location Reason(s) For Visit Diagnoses Date Provider Providers Copied on Encounter [facility], [address] [place] [address] [address], [place], [place], [id number], [place] tel:[phone] SEC [facility] No Information 2-200 8 Gamez OD Wiley. [address] [facility] , [address], [place], [address], [place]. tel:[phone] Family History Family Member Type Diagnosis Age At Onset No Information Payers Payer name Insurance type Covered green party ID Authoriza tion(s) No Information Social [...]
--- OUTSIDE RECORDS SUMMARY | 2024-09-08 02:08 | XMS_ITS | Encounter Summary ---
Author Organization [facility] Address [facility] [place] [address] Care Team Providers Care Ruby On Rails Engineer Name Role Phone Dennys Benito MD, Robert Unavailable [phone] Olya Chou-PATRIA Unavailable [phone] Sayda Vaughn MD Primary Care Provider Jessee Garland MD Unavailable [phone] Encounter Details Date Type Department Care Team (Latest Contact Info) Description 06/20/2023 Encitet Message [facility] [place] [address] Olya Chou, ANP-BC [address] [facility] [address] [address] Cholesterol medication Social History Tobacco Use Types Packs/Day Years [...] 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 [address] [place] [address] documented as of this encounter Visit Diagnoses Not on filedocumented in this encounter Care Teams Ruby On Rails Engineer Relationship Specialty Start Date End Date Sayda Vaughn MD [address] [place] [address] PCP - General FAMILY PRACTICE 12/30/15 Jian Noyola MD CARDIOVASCULAR DISEASE 12/07/15 Olya Chou ANP-BC [address] [facility] [address] [place] [address] NURSE PRACTITIONER 12/07/15 Jessee Garland MD [address] [facility] [address] [place] [address] Referring Physician GASTROENTEROLOGY 12/08/18 documented as of this encounter
[2024-09-08 06:23] VITALS: BP 133/93; PULSE 93; RESP 18; TEMP 36.7; O2SAT 97; BMI 34.4
[2024-09-08] MEDS: LACTATED RINGERS 1,000 ML 150 ML IV CONT (06:33)
--- NOTE | 2024-09-08 07:14 | P.PNAN_ITS ---
Anes - Initial Pre Proc Eval Procedure: Operation Date: 09/08/24 07:30 Proposed Procedures p Esophagogastroduodenoscopy & Colonoscopy - Josué Mendez MD Date/Time: 09/08/24 07:14 Surgeon: Josué Mendez MD Pre Op Diagnosis: Other specified diseases of anus and rectum Patient Data Age: 58 Gender: M Height: 1.8 m Weight: 111.9 kg Last Vital Signs Temp 36.7 C 09/08/24 06:23 Pulse 93 09/08/24 06:23 Resp 18 09/08/24 06:23 BP 133/93 H 09/08/24 06:23 Pulse Ox 97 09/08/24 06:23 O2 Del Method Room Air 09/08/24 06:23 Allergies Allergy/AdvReac Type Severity Reaction Status Date / Time statin AdvReac Mild Other Uncoded 09/08/24 06:19 Home Medications ?Medication ?Instructions ?Recorded ?Confirmed ?Type clopidogrel 75 mg tablet 75 mg PO DAILY 01/08/23 09/08/24 History ipratropium bromide 42 mcg (0.06 2 spray intranasal TID PRN nasal 01/08/23 09/02/24 History %) nasal spray congestion evolocumab 140 mg/mL subcutaneous 140 mg subcut ONCE 03/20/23 09/02/24 History pen injector (Reji Costello) lisinopril 5 mg tablet 5 mg PO DAILY 03/20/23 09/08/24 History tamsulosin 0.4 mg capsule 0.4 mg PO DAILY 07/02/24 09/02/24 History metformin 500 mg tablet,extended See Rx Instructions .Route 08/03/24 09/08/24 Rx release 24 hr .COMPLEX #90 tabs albuterol sulfate 90 mcg/actuation 1 puff inhalation Q4-6H PRN 09/02/24 09/02/24 History aerosol inhaler shortness of breath or wheezing fiberwise 1 dose PO HS 09/02/24 09/08/24 History testosterone 3 pump topical DAILY #75 grams 09/02/24 09/08/24 Rx Patient hx anesthesia problems: post op nausea/vomiting Family hx anesthesia problems: none Results Review: All pre-operative results and documents have been reviewed as part of the pre- operative evaluation. [facility] Past Medical History Medical History Belching GERD (gastroesophageal reflux disease) Mesenteric panniculitis History of colon polyps BRBPR (bright red blood per rectum) Rectal pain Intermittent diarrhea Right sided abdominal pain Bloating Hyperlipidemia HTN (hypertension) Obesity Pre-diabetes Left adrenal mass Low testosterone Fatigue Surgical History Surgical History Hx laparoscopic cholecystectomy Renetta Granados MD 04/11/23 History of excision of pilonidal cyst Hx of tonsillectomy History of cardiac cath x2 H/O rotator cuff surgery Family History Family History Other Diabetes mellitus Family history of heart disease in male family member before age 55 Heart disease Hypertension Social History Social History Smoking packs per day: 1.5 Smoking cigarettes per day: 30.0 Years smoked: 28 Smoking pack-years: 42.00 Smoking status: Former smoker Tobacco type: cigarettes Smokeless tobacco user: chewing tobacco Smoking end date: 04/01/09 Alcohol intake: current Substance use: never Do You Feel Safe in your Home?: Yes Lack of Transportation: No Lack of Food: Never True Current Housing: I Have Housing Concerned About Future Housing: No Difficulty Paying Gas/Electric Bills: No Difficulty Paying for Meds: No Currently Unemployed: No Education: High School Diploma/GED Difficulty w/ Childcare or Family Care: No Living arrangements: with family Occupation/Education: retired Spiritual care concerns: No Anes - Eval Final PreProcedure Day of Procedure 09/08/24 07:14 Patient weight: obese Heart: regular rate and rhythm Lungs: clear to auscultation Airway: Mallampati scale class II Neurological: alert and oriented Last oral intake: >/= 8 hours ASA classification: III Emergent: no Anesthetic plan: proceed Anesthesia type and monitoring: general GIVS and standard monitoring Results Review: All pre-operative results and documents have been reviewed as part of the pre- operative evaluation. Informed Consent: The patient's anesthetic plan and its attendant risks and benefits were discussed with the patient/family/POA. Questions were solicited and answers provided to the satisfaction of the patient/family/POA.
--- NOTE | 2024-09-08 07:25 | PM.HPGS ---
History of Present Illness History of Present Illness Consent: Risks, benefits, and alternatives have been discussed and questions answered. Patient agrees to proceed with procedure. Chief complaint: Other specified diseases of anus and rectum Narrative: Patric Mendez is a 58 year old male here for egd and colonoscopy, intermittent pain in ruq, also rectal discomfort, last colonoscopy about 6 years ago Review of Systems Review of Systems: All systems reviewed & are unremarkable except as noted in HPI and below PMFSH Past Medical History Medical History Belching GERD (gastroesophageal reflux disease) Mesenteric panniculitis History of colon polyps BRBPR (bright red blood per rectum) Rectal pain Intermittent diarrhea Right sided abdominal pain Bloating Hyperlipidemia HTN (hypertension) Obesity Pre-diabetes Left adrenal mass Low testosterone Fatigue Surgical History Surgical History Hx laparoscopic cholecystectomy Renetta Granados MD 04/11/23 History of excision of pilonidal cyst Hx of tonsillectomy History of cardiac cath x2 H/O rotator cuff surgery Family History Family History Other Diabetes mellitus Family history of heart disease in male family member before age 55 Heart disease Hypertension Social History Social History Smoking packs per day: 1.5 Smoking cigarettes per day: 30.0 Years smoked: 28 Smoking pack-years: 42.00 Smoking status: Former smoker Tobacco type: cigarettes Smokeless tobacco user: chewing tobacco Smoking end date: 04/01/09 Alcohol intake: current Substance use: never Do You Feel Safe in your Home?: Yes Lack of Transportation: No Lack of Food: Never True Current Housing: I Have Housing Concerned About Future Housing: No Difficulty Paying Gas/Electric Bills: No Difficulty Paying for Meds: No Currently Unemployed: No Education: High School Diploma/GED Difficulty w/ Childcare or Family Care: No Living arrangements: with family Occupation/Education: retired Spiritual care concerns: No Meds Home Medications and Allergies Home Medications ?Medication ?Instructions ?Recorded ?Confirmed ?Type clopidogrel 75 mg tablet 75 mg PO DAILY 01/08/23 09/08/24 History ipratropium bromide 42 mcg (0.06 2 spray intranasal TID PRN nasal 01/08/23 09/02/24 History %) nasal spray congestion evolocumab 140 mg/mL subcutaneous 140 mg subcut ONCE 03/20/23 09/02/24 History pen injector (Reji Costello) lisinopril 5 mg tablet 5 mg PO DAILY 03/20/23 09/08/24 History tamsulosin 0.4 mg capsule 0.4 mg PO DAILY 07/02/24 09/02/24 History metformin 500 mg tablet,extended See Rx Instructions .Route 08/03/24 09/08/24 Rx release 24 hr .COMPLEX #90 tabs albuterol sulfate 90 mcg/actuation 1 puff inhalation Q4-6H PRN 09/02/24 09/02/24 History aerosol inhaler shortness of breath or wheezing fiberwise 1 dose PO HS 09/02/24 09/08/24 History testosterone 3 pump topical DAILY #75 grams 09/02/24 09/08/24 Rx Allergies Allergy/AdvReac Type Severity Reaction Status Date / Time statin AdvReac Mild Other Uncoded 09/08/24 06:19 Vital Signs Vital Signs - 24 hr 09/08/24 06:23 Temperature 98.1 F Pulse Rate 93 Respiratory Rate 18 Blood Pressure 133/93 H Pulse Oximetry 97 Oxygen Delivery Room Air Exam Const: General: comfortable and no acute distress HENMT: Face/Nose/Sinus: Normal nares present Eyes: General: appearance normal, both eyes and all related structures Neck: Neck: no JVD Resp: Auscultation: clear to auscultation bilaterally Cardio: Rate: regular rate Rhythm: regular rhythm GI: Inspection: non-distended GI Palp: Yes Soft to palpation Skin: General skin exam: normal color Neuro: Speech: normal speech Extrem: General: normal to inspection Psych: Mental Status: mental status grossly normal Assessment and Plan Assessment and plan (1) Right sided abdominal pain: Code(s): R10.9 - Unspecified abdominal pain Status: Acute Assessment and Plan: egd (2) Rectal pain: Code(s): K62.89 - Other specified diseases of anus and rectum Status: Acute Assessment and Plan: colonoscopy
--- NOTE | 2024-09-08 07:47 | S_PTH ---
PATIENT: Patric Mendez LOC: [facility]#:[id number] AGE/SX: 58/M ROOM: RE09/08/[address]: Josué Mendez MD : 1965 BED: DIS: 09/08/2024 SPEC #: [id number] RECD: 09/08/24 08:30 STATUS: BORIS RETalia #: [id number] DARLENE: 09/08/24 07:[address]: Josué Mendez DEPT: [facility] Surgical RECD BY: Ivonne Grewal ENTERED: 09/08/24 08:31 SP TYPE: Surgical OTHR DR: Sayda Vaughn MD Tissues: A - Gastric Biopsy B - Small Bowel Bx C - Colon Polypectomy Procedures: Hematoxylin and Eosin Stain Gross and Microscopic Level 4
[2024-09-08 07:50] VITALS: BP 105/78; PULSE 87; RESP 22; O2SAT 96
--- NOTE | 2024-09-08 07:58 | SUR.OPER ---
EGD START 729, END 733 COLONOSCOPY START 737, END 746
[2024-09-08 08:00] VITALS: BP 123/71; PULSE 93; RESP 22; O2SAT 97
[2024-09-08 08:10] VITALS: BP 125/84; PULSE 89; RESP 18; O2SAT 97
== END 2024-09-08 08:19 | disposition home or self-care (01) ==
PROVIDERS: PCP Family Medicine; Visit Provider Internal Medicine Gastroenterology
PROC: 0DJ08ZZ Inspection of Upper Intestinal Tract, Via Natural or Artificial Opening Endoscopic (ICD-10-PCS; CPT 45378; principal; 2024-09-08 07:30)
DX: K62.89 Other specified diseases of anus and rectum (principal); D12.2 Benign neoplasm of ascending colon; K64.8 Other hemorrhoids; K57.30 Diverticulosis of large intestine without perforation or abscess without bleeding; K29.70 Gastritis, unspecified, without bleeding; K21.9 Gastro-esophageal reflux disease without esophagitis; I10 Essential (primary) hypertension; R73.03 Prediabetes; E29.1 Testicular hypofunction; F17.220 Nicotine dependence, chewing tobacco, uncomplicated; Z79.85 Long-term (current) use of injectable non-insulin antidiabetic drugs; Z79.84 Long term (current) use of oral hypoglycemic drugs; Z79.51 Long term (current) use of inhaled steroids; Z79.02 Long term (current) use of antithrombotics/antiplatelets; E66.9 Obesity, unspecified; Z68.34 Body mass index [BMI] 34.0-34.9, adult; Z98.890 Other specified postprocedural states; Z90.49 Acquired absence of other specified parts of digestive tract; Z98.61 Coronary angioplasty status; Z86.0100 Personal history of colon polyps, unspecified; Z82.49 Family history of ischemic heart disease and other diseases of the circulatory system
CPT/HCPCS: 43239; 45385; 82948; 88305; J2003; J2704; J7120

== ENCOUNTER 2024-12-16 07:38 | Outpatient (CLI) | payer OTHER, SELFPAY ==
--- OUTSIDE RECORDS SUMMARY | 2007-09-13 02:04 | XMS_ITS | Continuity of Care Document ---
Author Organization [facility] Address [address] [place] [address] [address] [place] [address] Phone Care Team Providers Care Finished Goods Inspector Name Role Phone Gamez OD, Wiley Unavailable Unavailable Procedures Procedure Date Eye Exam & Treatment Refraction Advance Directives Directive Yes / No Effective Date File Name No Information Encounters Encounter Description Practice Location Reason(s) For Visit Diagnoses Date Provider Providers Copied on Encounter [facility], [address] [place] [address] [address], [place], [place], [id number], [place] tel:[phone] [facility] No Information [phone] Gamez OD Wiley. [address] [facility] , [address], [place], [address], [place]. tel:[phone] Family History Family Member Type Diagnosis Age At Onset No Information Payers Payer name Insurance type Covered democrat ID Authoriza tion(s) No Information Social History Type Description Quantity Date Captured Comments Sex Male Smoking Status No Information Chief Complaint And Reason For Visit No Information Reason For Referral Reason For Referral No Information History Of Present Illness Encounter Date Complaint History Of Prese nt Illness No Information Functional Status Date Functional Assessmen t No Information Instructions Date Instruction Additional Infor mation No Information Assessments Type Assessment Date No Information Patient Care Teams Name Effective Dates (start - stop) Status Members No Information
--- OUTSIDE RECORDS SUMMARY | 2023-08-22 04:00 | XMS_ITS ---
Author Organization [facility] Address [address] [place] [id number] Care Team Providers Care Signal Wirer Name Role Phone Dr. Sayda Vaughn Primary Care Provider [phone] Migration, Provider Unavailable Unavailable REASON FOR VISIT BP f/u Vital Signs Temperature 97.8 degrees Fahrenheit 08/22/19 24 Blood pressure systolic 130 mm Hg 08/22/19 24 Blood pressure diastolic 88 mm Hg 024 Heart Rate 83 /min 08/22/2023 Respiratory Rate 16 /min 08/22/2023 Weight 248.99 lbs 08/22/2023 Oximetry 96 % 08/22/2023 Weight-kg 112.94 kg 08/22/2023 Encounters Encounter Location Date Provider Diagnosis [address] [address] 08/22/2023 Provider Migration Old myocardial infarction I25.2 ; Prediabetes R73.03 ; Essential (primary) hypertension I10 and Procedure and treatment not carried out because of patient's decision for unspecified reasons Z53.20 Assessments Encounter Date Diagnosis (ICD Code) Assessment Notes Treatment Notes Treatment Clinical Notes Section Notes 08/22/2023 Old myocardial infarction (ICD-10 - I25.2) 08/22/2023 Prediabetes (ICD-10 - R73.03) 08/22/2023 Essential (primary) hypertension (ICD-10 - I10) 08/22/2023 Procedure and treatment not carried out because of patient's decision for unspecified reasons (ICD-10 - Z53.20) Plan Of Treatment Next Appt Details Provider Name:Dr. Sayda Francisco [facility], 12/28/2024 11:00:00 AM, [address], [place], [address], [phone] Progress Notes * Adi SHOREOB:[birth year] (59 yo M)Acc No.[id number]:08/22/2023 Progress Notes Patient: Patric Callejas Provider: Ashley fox Migration :1965 A ge:57 Y S ex:Male Date:08/22/2023 Phone: Address:[address] [place] [address], [place], [id number] Pcp:Dr. Sayda Vaughn Subjective: * Chief Complaints: * B P f/u Objective: * Vitals: B P: 130/88 mm Hg, HR: 83 /min, RR: 16 /min, Temp: 97.8 F, Oxygen sat %: 96 %, Wt: 248.99 lbs, Wt-k.94 kg, BP2: 124/82. Past Vitals:* 07/18/2023 BP: 112/70 mm Hg, HR: 80 /mi n, Oxygen sat %: 96 %, Wt: 248.00 lbs, Wt-k.49 kg * 12/19/2022 BP: 128/82 mm Hg, HR: 105 /m in, Oxygen sat %: 97 %, Wt: 243.19 lbs, Wt-k.31 kg Assessment: * Assessment: 1. E ssential (primary) hypertension - I10 S pecify :Src Diagnosis Name: Benign essential hypertension 2 . O ld myocardial infarction - I25.2 S pecify :Src Diagnosis Name: Old myocardial infarct 3 . P rocedure and treatment not carried out because of patient's decision for unspecified reasons - Z53.20 S pecify :Src Diagnosis Name: Patient declines to take medication 4 . P rediabetes - R73.03 * Electronic signature of Prov ider Migration on 12/16/2024 at 07:41 AM SUPERVISOR CONTACT LENS Sign off status: Pending * Provider: Ashley fox Migration Date: 0 08/22/2023 Generated for Sandra marquez/Alley/eTransmitting on: 1 02/16/2024 07:41 AM SUPERVISOR CONTACT LENS
--- OUTSIDE RECORDS SUMMARY | 2023-11-04 02:30 | XMS_ITS ---
Author Organization [facility] Address [address] [place] [address] Care Team Providers Care Bartender Manager Name Role Phone Dr. Sayda Vaughn Primary Care Provider [phone] Dr. Agustin Bonilla Unavailable [phone] REASON FOR VISIT Spot #1 Chest Congestion Vital Signs Heart Rate 88 /min 11/04/2023 Oximetry 95 % 11/04/2023 Encounters Encounter Location Date Provider Diagnosis [address] [address] 11/04/2023 Dr. Agustin Bonilla Allergic rhinitis, unspecified J30.9 and Chronic obstructive pulmonary disease with (acute) exacerbation J44.1 Assessments Encounter Date Diagnosis (ICD Code) Assessment Notes Treatment Notes Treatment Clinical Notes Section Notes 11/04/2023 Allergic rhinitis, unspecified (ICD-10 - J30.9) 11/04/2023 Chronic obstructive pulmonary disease with (acute) exacerbation (ICD-10 - J44.1) Plan Of Treatment Next Appt Details Provider Name:Dr. Alfredo [facility], 12/28/2024 11:00:00 AM, [address] [place] [place] [address], [address], [phone] Progress Notes * Adi SHOREOB:[birth year] (59 yo M)Acc No.[id number]:11/04/2023 Patient: Patric Callejas Provider: Ashley Bonilla MD :1965 A ge:58 Y S ex:Male Date:11/04/2023 Phone: Address:[address] [place], [place]-[address] Pcp:Dr. Sayda Vaughn Subjective: * Chief Complaints: * S pot #1 Chest Congestion Objective: * Vitals: H R: 88 /min, Oxygen sat %: 95 %. Past Vitals:* 08/22/2023 BP: 130/88 mm Hg, HR: 83 /mi n, Oxygen sat %: 96 %, Wt: 248.99 lbs, Wt-k.94 kg * 07/18/2023 BP: 112/70 mm Hg, HR: 80 /mi n, Oxygen sat %: 96 %, Wt: 248.00 lbs, Wt-k.49 kg Assessment: * Assessment: 1. A llergic rhinitis, unspecified - J30.9 S pecify :Src Diagnosis Name: Allergic rhinitis 2 . C hronic obstructive pulmonary disease with (acute) exacerbation - J44.1? Specify :Src Diagnosis Name: COPD with exacerbation * Electronic signature of Dr. Agustin Bonilla on 12/16/2024 at 07:42 AM REBEAMER Sign off status: Pending * Provider: Aslhey Bonilla MD Date: 0 11/04/2023 Generated for Sandra marquez/Alley/Noahitting on: 1 02/16/2024 07:42 AM REBEAMER
--- OUTSIDE RECORDS SUMMARY | 2023-11-19 06:15 | XMS_ITS ---
Author Organization [facility] dicine Address [address] [place] [address] Care Team Providers Care Investment Banking Analyst Name Role Phone Dr. Sayda Vaughn Primary Care Provider [phone] REASON FOR VISIT Shot clinic Immunizations Vaccine Route Administration Date Status Comme nts [employer] Covid-19 Vaccine 1st dose IM Intramuscular 11/19/2023 Administered ,sourcename : N ew immunization record ,immstatus : Complete Influenza, seasonal, injectable, preservative free, 3 yrs and above IM Intramuscular 11/19/2023 Administered ,sourcename : N ew immunization record ,immstatus : Complete Encounters Encounter Location Date Provider Diagnosis [address] [address] 11/19/2023 Dr. Sayda Vaughn Encounter for immunization Z23 Assessments Encounter Date Diagnosis (ICD Code) Assessment Notes Treatment Notes Treatment Clinical Notes Section Notes 11/19/2023 Encounter for immunization (ICD-10 - Z23) Plan Of Treatment Next Appt Details Provider Name:Dr. Alfredo [facility], 12/28/2024 11:00:00 AM, [address] [place] [address], [address], [phone] Progress Notes * Adi SHOREOB:[birth year] (59 yo M)Acc No.[id number]:11/19/2023 Progress Note Patient: Patric Callejas Provider: Joshua Vaughn MD :1965 A ge:58 Y S ex:Male Date:11/19/2023 Phone: Address:[address] , [place], [place] Subjective: * Chief Complaints: * S hot clinic Objective: Past Vitals:* 08/22/2023 BP: 130/88 mm Hg, HR: 83 /mi n, Oxygen sat %: 96 %, Wt: 248.99 lbs, Wt-k.94 kg * 07/18/2023 BP: 112/70 mm Hg, HR: 80 /mi n, Oxygen sat %: 96 %, Wt: 248.00 lbs, Wt-k.49 kg Assessment: * Assessment: 1. E ncounter for immunization - Z23 S pecify :Src Diagnosis Name: Influenza vaccination administered at current visit Plan: * Immunizations: [employer] Covid-19 Vaccine 1st dose : 0.3 (Route: Intramuscular) on Left Arm Influenza, seasonal, injectable, preservative free, 3 yrs and above : 0.5 (Route: Intramuscular) on Right Arm * Electronic signature of Dr. Sayda Vaughn on 12/16/2024 at 07:42 AM CONDUIT MECHANIC Sign off status: Pending * Provider: Joshua Vaughn MD Date: Generated for Sandra marquez/Alley/[place]bella on: 02/16/2024 07:42 AM CONDUIT MECHANIC
--- OUTSIDE RECORDS SUMMARY | 2024-01-11 03:00 | XMS_ITS ---
Author Organization [facility] dicine Address [address] [place] [address] Care Team Providers Care Customer Insight Analyst Name Role Phone Dr. Sayda Vaughn Primary Care Provider [phone] Migration, Provider Unavailable Unavailable REASON FOR VISIT EMR-C[facility]pin Encounters Encounter Location Date Provider Diagnosis [facility] [address] [place] [address] 01/11/2024 Provider Migration Plan Of Treatment Medication Medication Name Sig Start Date Stop Date Notes Gemfibrozil 600 MG Tablet Oral; Duration: 90 12/14/2022 ,discontinuereason :Discontinued busPIRone HCl 7.5 MG Tablet 1 Oral three times a day; Duration: 0 11/22/2021 11/06/2022 ,discontinuereason :Discontinued,PRN Reason:for anxiety metFORMIN HCl ER 500 MG Tablet Extended Release 24 Hour 1 Oral two times a day; Duration: 90 09/27/2022 07/17/2023 ,discontinuereason :Discontinued Trulicity 0.75 MG/0.5ML Solution Pen-injector 0.75 Subcutaneous once a week; Duration: 0 10/22/2022 07/17/2023 ,discontinuereason :Discontinued Ipratropium Hematite 0.06 % Solution Nasal; Duration: 90 09/27/2023 12/25/2023 Montelukast Sodium 10 MG Tablet 1 Oral every evening; Duration: 30 12/07/2021 03/06/2022 predniSONE 20 MG Tablet 2 Oral every day ; Duration: 5 11/04/2023 11/08/2023 Ozempic (0.25 or 0.5 MG/DOSE) 2 MG/3ML Solution Pen-injector 0.25 Subcutaneous once a week; Duration: 0 10/22/2022 10/28/2022 not covered by insurance.,discont inuereason:Discont inued Doxycycline Hyclate 100 MG Tablet 1 Oral two times a day; Duration: 11/04/2023 11/13/2023 Lisinopril 5 MG Tablet 1 Oral every day; Duration: 08/16/2023 08/21/2023 declinestokeeptaki ng,discontinuereas on:Discontinued Metoprolol Succinate ER 25 MG Tablet Extended Release 24 Hour 1 Oral every day; Duration: 08/22/2023 11/19/2023 AndroGel Pump 20.25 MG/ACT (1.62%) Gel Transdermal; Duration: 01/16/2023 07/17/2023 ,discontinuereason :Discontinued Augmentin 875-125 MG Tablet 1 Oral two times a day; Duration: 10/31/2020 11/06/2020 switched antibiotics,discon tinuereason:Discon tinued *Pick strength-form from [facility] for eRX* Famotidine 40 MG Tablet 1 Oral every nig ht at bedtime; Duration: 08/02/2021 10/21/2022 ,discontinuereason :Discontinued Topiramate 25 MG Tablet 2 Oral two times a day; Duration: 03/13/2021 03/19/2021 ,discontinuereason :Discontinued Fluticasone Propionate 50 MCG/ACT Suspension Nasal; Duration: 11/06/2021 05/04/2022 dexAMETHasone 6 MG Tablet 1 Oral every d ay; Duration: 07/14/2021 07/14/2021 Escitalopram Oxalate 10 MG Tablet 1 Oral every day; Duration: 01/11/2023 07/17/2023 ,discontinuereason :Discontinued Amoxicillin-Pot Clavulanate 875-125 MG Tablet 1 Oral two times a day; Duration: 03/05/2023 03/14/2023 hydroCHLOROthiazide 25 MG Tablet 1/2 Oral every day; Duration: 06/21/2023 07/17/2023 ,discontinuereason :Discontinued Benzonatate 200 MG Capsule 1 Oral three times a day; Duration: 0 10/31/2020 12/25/2020 ,discontinuereason :Discontinued,PRN Reason:for cough ProAir RespiClick 108 (90 Base) MCG/ACT Aerosol Powder Breath Activated 1-2 Inhalation every 4-6 hours; Duration: 0 11/04/2023 11/04/2023 ,PRN Reason:for cough REPATHA PUSHTRONEX subcutaneous; Duration: 0 12/26/2020 04/27/2021 ,discontinuereason :Discontinued *Reorder from [facility] for eRx and Interaction Alerts* Flonase Allergy Relief 50 MCG/ACT Suspension 1 Nasal every day; Duration: 07/14/2021 08/12/2021 Wellbutrin XL 150 MG Tablet Extended Release 24 Hour 1 Oral every day; Duration: 03/20/2021 03/20/2021 Rx Refill Request,discontinu ereason:Refilled buPROPion HCl ER (XL) 150 MG Tablet Extended Release 24 Hour 1 Oral every day; Duration: 11/02/2021 11/25/2021 ,discontinuereason :Discontinued Next Appt Details Provider Name:Dr. Sayda [facility], 12/28/2024 11:00:00 AM, [address] [place], [address], [phone] Progress Notes * CRISTIANÁNGELRACQUELAdiOB:[birth year] (59 yo M)Acc No.[id number]:01/11/2024 Patient: Patric GAMA :1965 A ge:58 Y S ex:Male Phone: Address:[address] [place] [address], [place], [address] * Refills Stop busPIRone HCl Tablet, 7.5 MG, Oral, 60, 1, three times a day, 0 Stop Topiramate Tablet, 25 MG, Oral, 70, 0 Stop metFORMIN HCl ER Tablet Extended Release 24 Hour, 500 MG, Oral, 180, 1, two times a day, 90 Stop Metoprolol Succinate ER Tablet Extended Release 24 Hour, 25 MG, Oral, 30, 1, every day, 30 Stop REPATHA PUSHTRONEX, subcutaneous, 0 Stop Topiramate Tablet, 25 MG, Oral, 360, 2, two times a day, 90 Stop metFORMIN HCl ER Tablet Extended Release 24 Hour, 500 mg, Oral, 60, 0 Stop Doxycycline Hyclate Tablet, 100 MG, Oral, 20, 1, two times a day, 10 Stop Fluticasone Propionate Suspension, 50 MCG/ACT, Nasal, 16, 30 Stop Ipratropium Hematite Solution, 0.06 %, Nasal, 45, 90 Stop Escitalopram Oxalate Tablet, 10 MG, Oral, 90, 1, every day, 90 Stop hydroCHLOROthiazide Tablet, 25 MG, Oral, 45, 1/2, every day, 90 Stop hydroCHLOROthiazide Tablet, 25 MG, Oral, 90, 1, every day, 90 Stop Metoprolol Succinate ER Tablet Extended Release 24 Hour, 25 MG, Oral, 90, 1, every day, 90 Stop Metoprolol Succinate ER Tablet Extended Release 24 Hour, 25 MG, Oral, 90, 1, every day, 90 Stop Flonase Allergy Relief Suspension, 50 MCG/ACT, Nasal, 1, 1, every day, 30 Stop dexAMETHasone Tablet, 6 MG, Oral, 1, 1, every day, 1 Stop hydroCHLOROthiazide Tablet, 25 MG, Oral, 30, 1, every day, 30 Stop Lisinopril Tablet, 5 MG, Oral, 90, 1, every day, 90 Stop Montelukast Sodium Tablet, 10 MG, Oral, 30, 1, every evening, 30 Stop predniSONE Tablet, 20 MG, Oral, 6, 2, every day, 3 Stop predniSONE Tablet, 20 MG, Oral, 10, 2, every day, 5 Stop Metoprolol Succinate ER Tablet Extended Release 24 Hour, 25 MG, Oral, 90, 1, every day, 90 Stop Ozempic (0.25 or 0.5 MG/DOSE) Solution Pen-injector, 2 MG/3ML, Subcutaneous, 15, 0.25, once a week, 0 Stop Amoxicillin-Pot Clavulanate Tablet, 875-125 MG, Oral, 20, 1, two times a day, 10 Stop dexAMETHasone Tablet, 6 MG, Oral, 1, 1, every day, 1 Stop Fluticasone Propionate Suspension, 50 MCG/ACT, Nasal, 48, 90 Stop buPROPion HCl ER (XL) Tablet Extended Release 24 Hour, 150 MG, Oral, 30, 1, every day, 30 Stop buPROPion HCl ER (XL) Tablet Extended Release 24 Hour, 150 MG, Oral, 30, 1, every day, 30 Stop Metoprolol Succinate ER Tablet Extended Release 24 Hour, 25 MG, Oral, 90, 1, every day, 90 Stop Metoprolol Succinate ER Tablet Extended Release 24 Hour, 25 MG, Oral, 90, 1, every day, 90 Stop ProAir RespiClick Aerosol Powder Breath Activated, 108 (90 Base) MCG/ACT, Inhalation, 9, 2, every 4-6 hours, 0 Stop ProAir RespiClick Aerosol Powder Breath Activated, 108 (90 Base) MCG/ACT, Inhalation, 9, 2, every 4-6 hours, 0 Stop AndroGel Pump Gel, 20.25 MG/ACT (1.62%), Transdermal, 150, 2, every day, 30 Stop Fluticasone Propionate Suspension, 50 MCG/ACT, Nasal, 16, 30 Stop Gemfibrozil Tablet, 600 MG, Oral, 90, 90 Stop buPROPion HCl ER (XL) Tablet Extended Release 24 Hour, 150 MG, Oral, 30, 1, every day, 30 Stop buPROPion HCl ER (XL) Tablet Extended Release 24 Hour, 150 MG, Oral, 30, 1, every day, 30 Stop Metoprolol Succinate ER Tablet Extended Release 24 Hour, 25 MG, Oral, 90, 1, every day, 90 Stop ProAir RespiClick Aerosol Powder Breath Activated, 108 (90 Base) MCG/ACT, Inhalation, 1, 1-2, every 4-6 hours, 0 Stop hydroCHLOROthiazide Tablet, 25 MG, Oral, 90, 1, every day, 90 Stop Ipratropium Hematite Solution, 0.06 %, Nasal, 45, 2, three times a day, 90 Stop AndroGel Pump Gel, 20.25 MG/ACT (1.62%), Transdermal, 1, 1, as directed, 30 Stop hydroCHLOROthiazide Tablet, 25 MG, Oral, 90, 1, every day, 90 Stop buPROPion HCl ER (XL) Tablet Extended Release 24 Hour, 150 MG, Oral, 30, 1, every day, 30 Stop buPROPion HCl ER (XL) Tablet Extended Release 24 Hour, 150 MG, Oral, 30, 1, every day, 30 Stop Metoprolol Succinate ER Tablet Extended Release 24 Hour, 25 MG, Oral, 90, 1, every day, 90 Stop Famotidine Tablet, 40 MG, Oral, 30, 1, every night at bedtime, 30 Stop Gemfibrozil Tablet, 600 MG, Oral, 30, 1, at bed time, 30 Stop hydroCHLOROthiazide Tablet, 25 MG, Oral, 45, 1/2, every day, 90 Stop metFORMIN HCl ER Tablet Extended Release 24 Hour, 500 mg, Oral, 2, two times a day, 0 Stop hydroCHLOROthiazide Tablet, 25 MG, Oral, 90, 90 Stop metFORMIN HCl ER Tablet Extended Release 24 Hour, 500 mg, Oral, 180, 1, two times a day, 90 Stop metFORMIN HCl ER Tablet Extended Release 24 Hour, 500 MG, Oral, 180, 1, two times a day, 90 Stop metFORMIN HCl ER Tablet Extended Release 24 Hour, 500 mg, Oral, 360, 90 Stop metFORMIN HCl ER Tablet Extended Release 24 Hour, 500 MG, Oral, 180, 1, two times a day, 90 Stop AndroGel Pump Gel, 20.25 MG/ACT (1.62%), Transdermal, 1, 1, as directed, 30 Stop Benzonatate Capsule, 200 MG, Oral, 14, 1, three times a day, 0 Stop Gemfibrozil Tablet, 600 MG, Oral, 30, 1, at bed time, 30 Stop Ipratropium Hematite Solution, 0.06 %, Nasal, 1, 2, three times a day, 0 Stop Wellbutrin XL Tablet Extended Release 24 Hour, 150 MG, Oral, 30, 1, every day, 30 Stop buPROPion HCl ER (XL) Tablet Extended Release 24 Hour, 150 MG, Oral, 30, 1, every day, 30 Stop AndroGel Pump Gel, 20.25 MG/ACT (1.62%), Transdermal, 75, 0 Stop Augmentin Tablet, 875-125 MG, Oral, 20, 1, two times a day, 10 Stop Escitalopram Oxalate Tablet, 10 MG, Oral, 30, 1, every day, 30 Stop Fluticasone Propionate Suspension, 50 MCG/ACT, Nasal, 16, 30 Stop Ipratropium Hematite Solution, 0.06 %, Nasal, 45, 2, three times a day, 90 Stop Lisinopril Tablet, 5 MG, Oral, 90, 1, every day, 90 Stop metFORMIN HCl ER Tablet Extended Release 24 Hour, 500 mg, Oral, 360, 2, two times a day, 90 Stop metFORMIN HCl ER Tablet Extended Release 24 Hour, 500 MG, Oral, 180, 1, two times a day, 90 Stop Trulicity Solution Pen-injector, 0.75 MG/0.5ML, Subcutaneous, 15, 0.75, once a week, 0 Stop Amoxicillin-Pot Clavulanate Tablet, 875-125 MG, Oral, 20, 1, two times a day, 10 Stop AndroGel Pump Gel, 20.25 MG/ACT (1.62%), Transdermal, 75, 0 Stop Lisinopril Tablet, 5 MG, Oral, 90, 1, every day, 0 Stop Lisinopril Tablet, 5 MG, Oral, 90, 1, every day, 90 Stop metFORMIN HCl ER Tablet Extended Release 24 Hour, 500 MG, Oral, 180, 1, two times a day, 90 Subjective: * Chief Complaints: * E MR-[facility]pin Objective: Past Vitals:* 08/22/2023 BP: 130/88 mm Hg, HR: 83 /mi n, Oxygen sat %: 96 %, Wt: 248.99 lbs, Wt-k.94 kg * 07/18/2023 BP: 112/70 mm Hg, HR: 80 /mi n, Oxygen sat %: 96 %, Wt: 248.00 lbs, Wt-k.49 kg * * Date:
--- OUTSIDE RECORDS SUMMARY | 2024-01-12 03:00 | XMS_ITS ---
Author Organization [facility] Address [address] [place] [address] Care Team Providers Care Analytics Analyst Name Role Phone Dr. Sayda Vaughn Primary Care Provider [phone] Migration, Provider Unavailable Unavailable Allergies No Known Allergies REASON FOR VISIT [facility] Medications Medication SIG (Take, Route, Frequency, Duration) Notes Start Date End Date Status Clopidogrel Bisulfate 75 MG Tablet 1 Oral every day; Duration: 0 12/26/2020 Active REPATHA PUSHTRONEX subcutaneous; Duration: 0 *Reorder from [facility] for eRx and Interaction Alerts* 07/18/2023 Active Social History Social History Additional Details Category Social Info Options Details Migrated Social History Migrated Social History Marital status: , Employment:Retired Encounters Encounter Location Date Provider Diagnosis [facility] [address] [place] [address] 01/12/2024 Provider Migration Plan Of Treatment Next Appt Details Provider Name:Dr. Alfredo [facility], 12/28/2024 11:00:00 AM, [address] [place] [address], [address], [phone] Progress Notes * Adi SHOREOB:[birth year] (59 yo M)Acc No.[id number]:01/12/2024 Patient: Patric GAMA :1965 A ge:58 Y S ex:Male Phone: Address:[address] [facility], [place], [address] Subjective: * Chief Complaints: * E MR-[facility] * Surgical History: cholecystectomy ,notes : 04/11/23 Cardiac Cath ,notes : x2-- no stents placed. Colonoscopy, flexible, proximal to splenic flexure; diagnostic, with or without collection of specim 01/12/2016 * Social History: M igrated Social History: M igrated Social History: Marital status:,Employment:Retired. * Medications: T akingClopidogrel Bisulfate 75 MG Tablet 1 Oral every day REPATHA PUSHTRONEX subcutaneous , Notes to Pharmacist: *[facility] for eRx and Interaction Alerts*Taking Clopidogrel Bisulfate 75 MG Tablet 1 Oral every day Taking REPATHA PUSHTRONEX subcutaneous , Notes to Pharmacist: *Reorder from [facility] for eRx and Interaction Alerts* * Allergies: N .K.D.A. Objective: Past Vitals:* 08/22/2023 BP: 130/88 mm Hg, HR: 83 /mi n, Oxygen sat %: 96 %, Wt: 248.99 lbs, Wt-k.94 kg * 07/18/2023 BP: 112/70 mm Hg, HR: 80 /mi n, Oxygen sat %: 96 %, Wt: 248.00 lbs, Wt-k.49 kg * * Date:
--- OUTSIDE RECORDS SUMMARY | 2024-12-16 07:42 | XMS_ITS | Clinical Summary ---
Author Organization [facility] [address] Address [address] [place] [address] Care Team Providers Care Grinding Machine Tender Name Role Phone Sayda Vaughn MD Primary [...] indigestion Diverticulitis COPD (chronic obstructive pulmonary disease) Family History Medical History Relation Name Comments [...] on file Legal Sex Male 10:02 AM CELL RELINER Gender Identity Not on file Sexual Orientation Not on file Last Filed Vital Signs Vital Sign Reading Time Taken Comments Blood Pressure 124/80 01/06/2020 9:47 AM CELL RELINER Pulse 76 01/06/2020 9:47 AM CELL RELINER Temperature 36.2 C (97.1 F) 08/04/2019 2:50 PM CDT Respiratory Rate - - Oxygen Saturation 95% 01/06/2020 9:47 AM CELL RELINER Inhaled Oxygen Concentration - - Weight 113.9 kg (251 lb) 01/06/2020 9:47 AM CELL RELINER Height 180.3 cm (5' 11) 01/06/2020 9:47 AM CELL RELINER Body Mass Index 35.01 01/06/2020 9:47 AM CELL RELINER Plan of Treatment Not on file Insurance JULIA ALLAN Member Subscriber Plan / Payer (Ef fective 2019-Present) Name:Patric Mendez Relation to Subscriber:Self Name:Patric Mendez Payer ID:[id number] (NAIC) Group ID:[id number] Type:CIGNA HMO/PPO Address: [facility] [address] [place] [id number] Care Teams Grinding Machine Tender Relationship Specialty Start Date End Date Sayda Vaughn MD [address] [place] [address] PCP - General Family Medicine 05/22/19
--- OUTSIDE RECORDS SUMMARY | 2024-12-16 07:42 | XMS_ITS | Patient Health Record ---
Author Organization [facility] dicine Address [address] [place] [address] Care Team Providers Care Gis Web Developer Name Role Phone Dr. Sayda Vaughn Primary Care Provider [phone] Vikki Khan Unavailable [phone] Migration, Provider Unavailable Unavailable Allergies No Known Allergies Results Component Value Reference Range Notes Urinalysis Reviewed date:05/24/2024 05:46:21 PM Interpretation: Performing Lab: Notes/Report: Urine-Color Yellow Appearance Clear Specific [place] 1.010 pH 6.0 Glucose Negative Urine Protein Trace Occult Blood Negative Bilirubin Negative Urobilinogen,Semi-Qn 0.2 Nitrite, Urine Negative Ketones Trace Leucocyte Esterase Negative CT Scan : Chest with contras t Reviewed date:06/11/2024 02:29:11 PM Interpretation: Performing Lab: Notes/Report: CT Abdomen and Pelvis with a nd without contrast (23190) Reviewed date:06/11/2024 02:29:39 PM Interpretation: Performing Lab: Notes/Report: Reason For Referral Reason abnormal CT results persistent abd pain Diagnosis 1 Generalized abdomina l pain (R10.84) Diagnosis 2 Mesenteric panniculi tis (K65.4) Diagnosis 3 Fatty liver (K76.0) Referral Organization [facility] Referring Provider First Name Dr. Alfredo Referring Provider Last Name Vaughn Referring Provider [facility] icine Referred Provider Specialty Gastroentero logy General Notes Shraddha Harrison 06/17 09:08:43 AM CDT >[facility] [place] - needs urgent referral, pt will bring images on disc, Radha Luque 06/17/2024 09:29:07 AM CDT >Referral faxed to [facility] [phone] Kaitlin 07/08/2024 12:12:10 PM CDT >consult note received in chart. Referral Priority Urgent Referral Appointment Date 07/02/2024 Medications Medication SIG (Take, Route, Frequency, Duration) Notes Start Date End Date Status Ipratropium [place] 0.06 % Solution INHALE 2 SPRAYSEACH NOSTRIL [...] Orally Once a day; Duration: 90 days Active Immunizations Vaccine Route Administration Date Status Comme nts Tdap IM Intramuscular 04/17/2018 Administered Source VFC Code: : [employer] Covid-19 Vaccine 1st dose IM Intramuscular 04/22/2020 Administered Source [facility] Code: : [facility] Covid-19 Vaccine 1st dose IM Intramuscular 05/14/2020 Administered Source VFC Code: : [employer] Covid-19 Vaccine 1st dose IM Intramuscular 11/19/2023 [...] N ew immunization record ,immstatus : Complete Influenza 6mo+ IM Intramuscular 11/24/2024 Administered Social History Tobacco Use: Social History Observation [...] Problem Status W/U Status Risk Notes Problem Benign neoplasm of left adrenal gland (648444113745866) 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) 12/08/19 22 Active confirmed Problem Testicular hypofunction (409402637) Testicular hypofunction (E29.1) 03/20/19 22 Active confirmed Problem Obesity (144196191) Obesity, unspecified (E66.9) 11/08/19 23 Active confirmed Problem Hyperlipidemia (32824922) Hyperlipidemia, unspecified (E78.5) 04/29/19 22 Active confirmed Problem Hypercalcemia (69366793) Hypercalcemia (E83.52) 12/28/19 23 Active confirmed Problem Mild major depression, single episode (34074113) Major depressive disorder, single episode, mild (F32.0) 11/23/19 22 Active confirmed Problem Moderate recurrent major depression (28948549) Major depressive disorder, recurrent, moderate (F33.1) 12/20/19 23 Active confirmed Problem Generalized anxiety disorder (29128983) Generalized anxiety disorder (F41.1) 01/12/20 16 Active confirmed Problem Anxiety disorder (504271768) Anxiety disorder, unspecified (F41.9) 12/20/19 23 Active confirmed Problem Essential hypertension (42408491) Essential (primary) hypertension (I10) 08/22/19 24 Active confirmed Problem Atherosclerotic heart disease of [place] coronary artery without angina pectoris (724744541770941) Atherosclerotic heart disease of [place] coronary artery without angina pectoris (I25.10) 10/18/19 23 Active confirmed Problem Old myocardial infarction (7396512) Old myocardial infarction (I25.2) 08/22/19 24 Active confirmed Problem Allergic rhinitis (98596662) Allergic rhinitis, unspecified (J30.9) 12/20/19 23 Active confirmed Problem Acute exacerbation of chronic obstructive airways disease (255372658) Chronic obstructive pulmonary disease with (acute) exacerbation (J44.1) 11/04/19 24 Active confirmed Problem Backache (878974973) Dorsalgia, unspecified (M54.9) 11/08/19 23 Active confirmed Problem Tachycardia (2423586) Tachycardia, unspecified (R00.0) 11/23/19 22 Active confirmed Problem Abdominal pain (88274411) Unspecified abdominal pain (R10.9) 01/22/20 23 Active confirmed Problem Diarrhea (29543633) Diarrhea, unspecified (R19.7) 12/20/19 23 Active confirmed Problem Nocturia (065776684) Nocturia (R35.1) Active confirmed Problem Fatigue (32733627) Other fatigue (R53.83) 03/20/19 22 Active confirmed Problem Abnormal weight gain (106477928) Abnormal weight gain (R63.5) 12/27/19 21 Active confirmed Problem Hyperglycemia (93104537) Hyperglycemia, unspecified (R73.9) 01/15/20 23 Active confirmed Problem Screening for malignant neoplasm of prostate (448030445) Encounter for screening for malignant neoplasm of prostate (Z12.5) 10/18/19 23 Active confirmed Problem Vaccination given (929454178) Encounter for immunization (Z23) 11/19/19 24 Active confirmed Problem Procedure not carried out (771618245) Procedure and treatment not carried out because of patient's decision for unspecified reasons (Z53.20) 08/22/19 24 Active confirmed Problem Food allergy (202602144) Allergy to other foods (Z91.018) 11/13/19 23 Active confirmed Problem Prediabetes (860626625) Prediabetes (R73.03) 01/03/20 21 Active confirmed Vital Signs Heart Rate 91 /min 06/26/2024 Temperature 96.4 degrees Fahrenheit 06/26/2024 Respiratory Rate 18 /min 06/26/2024 Blood pressure diastolic 80 mm Hg 06/26/2024 Height-cm 180.34 cm 06/26/2024 Oximetry 94 % 06/26/2024 Weight-kg 115.4 kg 06/26/2024 Height 71.00 in 06/26/2024 Blood pressure systolic 114 mm Hg 06/26/2024 Weight 254.4 lbs 06/26/2024 BMI 35.48 kg/m2 06/26/2024 Procedures Procedure Date Ordered Date Performed Result Body Sit e ESOPHAGOGASTRODUODENOSCOPY 09/08/2024 09/08/2024 N/A COLONOSCOPY AND BIOPSY 09/08/2024 09/08/2024 N/A Encounters Encounter Location Date Provider Diagnosis [address] [address] 04/20/2024 Vikki Khan Other specified respiratory disorders J98.[address] [address] 05/22/2024 Vikki Khan Right flank pain R10 .9 ; Right-sided chest wall pain R07.89 and Nocturia R35.[address] [address] 06/26/2024 Vikki Khan Chronic obstructive pulmonary disease with (acute) exacerbation J44.1 ; Essential (primary) hypertension I10 ; Hyperlipidemia, unspecified E78.5 ; Atherosclerotic heart disease of [place] coronary artery without angina pectoris I25.10 ; Benign neoplasm of left adrenal gland D35.02 ; Nocturia R35.1 ; Testicular hypofunction E29.1 ; Prediabetes R73.03 ; Fatty liver K76.0 ; Symptomatic abdominal panniculus E65 ; Encounter for screening for malignant neoplasm of prostate Z12.5 and Multiple allergies Z88.[address] [address] 11/24/2024 Vikki Lizamaert Encounter for immunization Z23 [facility] [address] [place] [address] 01/11/2024 Provider Migration [facility] [address] [place] [address] 01/12/2024 Provider Migration [address] [address] 06/03/2024 Dr. Sayda Vaughn [address] [address] 07/10/2024 Dr. Sayda Vaughn Assessments Encounter Date [...] Call with any new or worrisome concerns. 05/22/2024 Right flank pain (ICD-10 - R10.9) [...] negative then would like to image back. 11/24/2024 Encounter for immunization (ICD-10 - Z23) 06/26/2024 Essential (primary) hypertension (ICD-10 - I10) Blood pressure well-controlled on lisinopril. 06/26/2024 Chronic obstructive pulmonary disease with (acute) exacerbation (ICD-10 - J44.1) -Has COPD on diagnosis list, he is not on daily medication, but uses albuterol as needed. 06/26/2024 Hyperlipidemia, unspecified (ICD-10 - E78.5) -Hx of cardiac stent, he is on Repatha which at times is too expensive 05/22/2024 Nocturia (ICD-10 - R35.1) -Getting up 3-4 times per night. Will initiate tamsulosin to see fi that will be helpufl. 06/26/2024 Atherosclerotic heart disease of [place] coronary artery without angina pectoris (ICD-10 - [...] findings. Not sure if he had seen police guard which was suggested -Will look inot food [...] patient and see if he ever saw police guard. Plan Of Treatment Next Appt Details Provider Name:Dr. Sayda medina, 12/28/2024 11:00:00 AM, [address] [facility], [place], [address], [phone] Insurance Providers Payer Name Payer Address Payer Phone Subscriber Number Group Number Insured Name Patient Relationship to Insured Coverage Start Date Coverage End Date Cigna [address] [place] [address] [id number] Patric Velázquez Self - patient is the insured 5 Medical (General) History Medical History History ICD Code Nocturia R35.1 Hyperglycemia, unspecified R73.9 Dorsalgia, unspecified M54.9 Testicular hypofunction E29.1 Anxiety disorder, unspecified F41.9 Old myocardial infarction I25.2 Benign neoplasm of left adrenal gland D3 5.02 Abdominal distension (gaseous) R14.0 Atherosclerotic heart diseas e of [place] coronary artery without angina pectoris I25.10 Small [...]
[2024-12-16 08:29] LABS: Hematocrit 48.6 % (42.0-52.0); Hemoglobin 16.0 g/dL (14.0-18.0); Mean Corpuscular HGB Conc 32.9 g/dl (32-36); Mean Corpuscular Hemoglobin 29.3 pg (26-34); Mean Corpuscular Volume 88.8 fl (80-100); Platelet Count Result 205 k/mm3 (150-375); Red Blood Count 5.47 M/mm3 (4.6-6.20); White Blood Count 6.1 K/mm3 (4.5-10.0)
[2024-12-16 09:25] LABS: Prostate Specific Antigen 1.4 ng/mL (< OR = 4.0)
[2024-12-19 15:09] LABS: Free Testosterone (Direct) 12.5 pg/mL (6.6-18.1)
== END 2024-12-16 07:39 | disposition home or self-care (01) ==
LOC: ANHLAB 07:39
PROVIDERS: PCP Family Medicine; Visit Provider Internal Medicine
DX: R79.89 Other specified abnormal findings of blood chemistry (principal); E11.9 Type 2 diabetes mellitus without complications; Z71.3 Dietary counseling and surveillance; E27.8 Other specified disorders of adrenal gland; I10 Essential (primary) hypertension; E66.9 Obesity, unspecified; Z12.5 Encounter for screening for malignant neoplasm of prostate
CPT/HCPCS: 36415; 84153; 84402; 84403; 85027; G0103

== ENCOUNTER 2024-12-30 09:51 | Outpatient (CLI) | payer OTHER, SELFPAY ==
--- NOTE | ~2024-12-30 | XR_ITS ---
XR thoracic spine 2V Indication: Pain in thoracic spine Comparison: None Findings: The vertebral heights are intact. No fracture or subluxation. The disc heights are intact. Soft tissues unremarkable Impression: No acute abnormality. Reviewed, dictated and finalized at location P. [employer] PROFESSOR Impression: No acute abnormality.
== END 2024-12-30 09:52 | disposition home or self-care (01) ==
PROVIDERS: PCP Family Medicine; Visit Provider Family Medicine
DX: M54.6 Pain in thoracic spine (principal)
CPT/HCPCS: 72070